=== PATIENT | female | born 1950 | race Caucasian/White ===

== ENCOUNTER 2016-11-24 16:40 | Inpatient (IN) | payer MEDICARE, OTHER ==
[2016-11-24] MEDS ORDERED: SODIUM CHLORIDE 0.9% 500 ML IV STA (16:42)
[2016-11-24] MEDS ORDERED: SODIUM CHLORIDE 0.9% 1,000 ML IV STA ×2 (16:42)
[2016-11-24 17:09] LABS: Anisocytosis Slight; Basophils % (A) 0 %; CH 30.6; CHCM 32.3; Eosinophils # (A) 0.1 k/uL (0-0.7); Eosinophils % (A) 1 %; HCT 25.8 % (34.0-46.0); HDW 3.65; HGB 7.9 gm/dL (11.4-16.0); Hypochromasia Moderate; Luc # (Auto) 0.03; Luc % (Auto) 0; Lymphocytes % (A) 9 %; MCH 29.1 pg (25.0-35.0); MCHC 30.6 g/dL (31.0-37.0); MCV 95.1 fL (80.0-100.0); Mean Platelet Volume 7.2; Monocytes # (A) 0.1 k/uL (0-1.0); Monocytes % (A) 1 %; Neutrophils # (A) 10.3 k/uL (1.3-7.7); Neutrophils % (A) 88 %; Poikilocytosis Slight; RBC 2.71 m/uL (3.80-5.40); RDW 16.2 % (11.5-15.5); WBC 11.7 k/uL (3.8-10.6); WBC (Perox) 12.43
[2016-11-24 17:21] LABS: ALT 32 U/L (9-52); AST 28 U/L (14-36); Alkaline Phosphatase 78 U/L (38-126); Anion Gap 11 mmol/L; Blood Urea Nitrogen 25 mg/dL (7-17); Carbon Dioxide 23 mmol/L (22-30); Chloride 102 mmol/L (98-107); Glucose 199 mg/dL (74-99); Magnesium 1.5 mg/dL (1.6-2.3); Non-African American GFR(MDRD) >60 (>60 ml/min/1.73 sqM); Phosphorous 3.9 mg/dL (2.5-4.5); Potassium 4.9 mmol/L (3.5-5.1); Sodium 136 mmol/L (137-145); Total Bilirubin 0.4 mg/dL (0.2-1.3); Total Protein 6.9 g/dL (6.3-8.2)
[2016-11-24 17:22] LABS: Appearance,Urine Cloudy (Clear); Bilirubin,Urine Negative (Negative); Glucose,Urine (UA) Negative (Negative); Ketones,Urine Negative (Negative); Leukocyte Esterase,Urine Large (Negative); Mucus,Urine Rare /hpf; Nitrite,Urine Negative (Negative); Particle Count 6103; Protein,Urine Trace (Negative); RBC,Urine 44 /hpf (0-5); Specific Gravity,Urine 1.008 (1.001-1.035); Squamous Epithelial Cell,Urine <1 /hpf (0-4); UA Billing (MACRO vs. MICRO) MICRO; Urobilinogen,Urine <2.0 mg/dL (<2.0); WBC,Urine >182 /hpf (0-5)
[2016-11-24 17:29] LABS: INR 1.1 (<1.1); Prothrombin Time 10.7 sec (9.0-12.0)
[2016-11-24 17:32] LABS: Ammonia <9 umol/L (<30)
[2016-11-24 17:45] LABS: Creatine Kinase MB 1.8 ng/mL (0.0-2.4); Troponin I 0.015 ng/mL (0.000-0.034)
--- NOTE | 2016-11-24 18:03 | ED ---
General Adult HPI - General Chief complaint: Altered Mental Status Stated complaint: Altered Mental Status Time Seen by Provider: 11/24/16 16:41 Source: EMS, RN notes reviewed, old records reviewed Mode of arrival: EMS Limitations: altered mental status - History of Present Illness Initial comments: This is a 66-year-old female ER for evaluation. This patient came in for evaluation of altered mental status. Patient's a transfer patient from external Hospital. [facility] transportation for evaluation of possible seizure altered mental status possible urinary tract infection, sepsis with toxic metabolic encephalopathy. Patient cannot give history at this time, history obtained from EMS and the chart - Related Data Home Medications Medication Instructions Recorded Confirmed Aspirin EC [Ecotrin Low Dose] 81 mg PO DAILY 11/24/16 11/24/16 Carvedilol [Coreg] 25 mg PO BID 11/24/16 11/24/16 Fenofibrate,Micronized 134 mg PO DAILY 11/24/16 11/24/16 [Fenofibrate] Furosemide [Lasix] 40 mg PO BID 11/24/16 11/24/16 Insulin Detemir [Levemir] 85 unit SQ HS 11/24/16 11/24/16 Levalbuterol HCl [Xopenex 1.25 mg INHALATION RT-TID 11/24/16 11/24/16 Concentrate] Lisinopril [Zestril] 10 mg PO BID 11/24/16 11/24/16 Potassium Chloride ER [K-Dur 10] 10 meq PO DAILY 11/24/16 11/24/16 Terazosin [Hytrin] 2 mg PO HS 11/24/16 11/24/16 Ticagrelor [Brilinta] 90 mg PO BID 11/24/16 11/24/16 amLODIPine BESYLATE [Norvasc] 2.5 mg PO BID 11/24/16 11/24/16 carBAMazepine [TEGretol] 200 mg PO TID 11/24/16 11/24/16 metFORMIN HCL [Glucophage] 500 mg PO BID 11/24/16 11/24/16 Allergies Allergy/AdvReac Type Severity Reaction Status Date / Time No Known Allergies Allergy Verified 11/24/16 17:10 Review of Systems ROS Statement: Those systems with pertinent positive or pertinent negative responses have been documented in the HPI. ROS Other: All systems not noted in ROS Statement are negative. Past Medical History Past Medical History: Chest Pain / Angina, Diabetes Mellitus, Hypertension History of Any Multi-Drug Resistant Organisms: Unobtainable Past Surgical History: Unable to Obtain Past Psychological History: Unable to Obtain Smoking Status: Unknown if ever smoked Past Alcohol Use History: Unable to Obtain Past Drug Use History: None Reported General Exam Limitations: altered mental status General appearance: in no apparent distress, lethargic Head exam: Present: atraumatic, normocephalic, normal inspection Eye exam: Present: normal appearance, PERRL, EOMI. Absent: scleral icterus, conjunctival injection, periorbital swelling ENT exam: Present: normal exam, mucous membranes moist Neck exam: Present: normal inspection. Absent: tenderness, meningismus, lymphadenopathy Respiratory exam: Present: normal lung sounds bilaterally. Absent: respiratory distress, wheezes, rales, rhonchi, stridor Cardiovascular Exam: Present: regular rate, normal rhythm, normal heart sounds. Absent: systolic murmur, diastolic murmur, rubs, gallop, clicks GI/Abdominal exam: Present: soft, normal bowel sounds. Absent: distended, tenderness, guarding, rebound, rigid Extremities exam: Present: normal inspection, full ROM, normal capillary refill. Absent: tenderness, pedal edema, joint swelling, calf tenderness Back exam: Present: normal inspection Neurological exam: Present: alert, oriented X3, CN II-XII intact Psychiatric exam: Present: normal affect, normal mood Skin exam: Present: warm, dry, intact, normal color. Absent: rash Course Vital Signs 11/24/16 11/24/16 16:43 16:49 Temperature 98.4 F Pulse Rate 99 94 Respiratory 18 17 Rate Blood Pressure 189/88 175/75 O2 Sat by Pulse 96 95 Oximetry - Reevaluation(s) Reevaluation #1: 11/24/16 18:02 Patient is showing no change in medical status EKG Findings - EKG Comments: EKG Findings:: EKG shows normal sinus rhythm rate 99, MI 146, QRS 88 6, QTc 459 Medical Decision Making - Medical Decision Making 66-year-old year for evaluation of altered mental status. Patient appears of toxic metabolic encephalopathy from urinary check infection. Will be admitted for IV fluid IV antibiotics. - Lab Data Result diagrams: 11/24/16 16:46 11/24/16 16:46 Lab Results 01/08/3111/24/16 11/24/16 Range/Units 16:46 16:46 16:46 WBC 11.7 H (3.8-10.6) k/uL RBC 2.71 L (3.80-5.40) m/uL Hgb 7.9 L (11.4-16.0) gm/dL Hct 25.8 L (34.0-46.0) % MCV 95.1 (80.0-100.0) fL MCH 29.1 (25.0-35.0) pg MCHC 30.6 L (31.0-37.0) g/dL RDW 16.2 H (11.5-15.5) % Plt Count 647 H (150-450) k/uL Neutrophils % 88 % Lymphocytes % 9 % Monocytes % 1 % Eosinophils % 1 % Basophils % 0 % Neutrophils # 10.3 H (1.3-7.7) k/uL Lymphocytes # 1.0 (1.0-4.8) k/uL Monocytes # 0.1 (0-1.0) k/uL Eosinophils # 0.1 (0-0.7) k/uL Basophils # 0.0 (0-0.2) k/uL Hypochromasia Moderate Poikilocytosis Slight Anisocytosis Slight PT (9.0-12.0) sec INR (<1.1) APTT (22.0-30.0) sec Sodium (137-145) mmol/L Potassium (3.5-5.1) mmol/L Chloride (98-107) mmol/L Carbon Dioxide (22-30) mmol/L Anion Gap mmol/L BUN (7-17) mg/dL Creatinine (0.52-1.04) mg/dL Est GFR (MDRD) Af Amer (>60 ml/min/1.73 sqM) Est GFR (MDRD) Non-Af (>60 ml/min/1.73 sqM) Glucose (74-99) mg/dL Plasma Lactic Acid Mart 1.5 (0.7-2.0) mmol/L Calcium (8.4-10.2) mg/dL Phosphorus (2.5-4.5) mg/dL Magnesium (1.6-2.3) mg/dL Total Bilirubin (0.2-1.3) mg/dL AST (14-36) U/L ALT (9-52) U/L Alkaline Phosphatase (38-126) U/L Ammonia <9 (<30) umol/L Total Creatine Kinase 49 (30-135) U/L CK-MB (CK-2) 1.8 (0.0-2.4) ng/mL CK-MB (CK-2) Rel Index 3.7 Troponin I 0.015 (0.000-0.034) ng/mL NT-Pro-B Natriuret Pep pg/mL Total Protein (6.3-8.2) g/dL Albumin (3.5-5.0) g/dL Urine Color Urine Appearance (Clear) Urine pH (5.0-8.0) Ur Specific Gratis (1.001-1.035) Urine Protein (Negative) Urine Glucose (UA) (Negative) Urine Ketones (Negative) Urine Blood (Negative) Urine Nitrate (Negative) Urine Bilirubin (Negative) Urine Urobilinogen (<2.0) mg/dL Ur Leukocyte Esterase (Negative) Urine RBC (0-5) /hpf Urine WBC (0-5) /hpf Urine WBC Clumps (None) /hpf Ur Squamous Epith Cells (0-4) /hpf Urine Mucus (None) /hpf 11/24/16 11/24/16 11/24/16 Range/Units 16:46 16:46 16:46 WBC (3.8-10.6) k/uL RBC (3.80-5.40) m/uL Hgb (11.4-16.0) gm/dL Hct (34.0-46.0) % MCV (80.0-100.0) fL MCH (25.0-35.0) pg MCHC (31.0-37.0) g/dL RDW (11.5-15.5) % Plt Count (150-450) k/uL Neutrophils % % Lymphocytes % % Monocytes % % Eosinophils % % Basophils % % Neutrophils # (1.3-7.7) k/uL Lymphocytes # (1.0-4.8) k/uL Monocytes # (0-1.0) k/uL Eosinophils # (0-0.7) k/uL Basophils # (0-0.2) k/uL Hypochromasia Poikilocytosis Anisocytosis PT 10.7 (9.0-12.0) sec INR 1.1 (<1.1) APTT 21.0 L (22.0-30.0) sec Sodium 136 L (137-145) mmol/L Potassium 4.9 (3.5-5.1) mmol/L Chloride 102 (98-107) mmol/L Carbon Dioxide 23 (22-30) mmol/L Anion Gap 11 mmol/L BUN 25 H (7-17) mg/dL Creatinine 0.86 (0.52-1.04) mg/dL Est GFR (MDRD) Af Amer >60 (>60 ml/min/1.73 sqM) Est GFR (MDRD) Non-Af >60 (>60 ml/min/1.73 sqM) Glucose 199 H (74-99) mg/dL Plasma Lactic Acid Mart (0.7-2.0) mmol/L Calcium 9.0 (8.4-10.2) mg/dL Phosphorus 3.9 (2.5-4.5) mg/dL Magnesium 1.5 L (1.6-2.3) mg/dL Total Bilirubin 0.4 (0.2-1.3) mg/dL AST 28 (14-36) U/L ALT 32 (9-52) U/L Alkaline Phosphatase 78 (38-126) U/L Ammonia (<30) umol/L Total Creatine Kinase (30-135) U/L CK-MB (CK-2) (0.0-2.4) ng/mL CK-MB (CK-2) Rel Index Troponin I (0.000-0.034) ng/mL NT-Pro-B Natriuret Pep 6790 pg/mL Total Protein 6.9 (6.3-8.2) g/dL Albumin 3.5 (3.5-5.0) g/dL Urine Color Urine Appearance (Clear) Urine pH (5.0-8.0) Ur Specific Gratis (1.001-1.035) Urine Protein (Negative) Urine Glucose (UA) (Negative) Urine Ketones (Negative) Urine Blood (Negative) Urine Nitrate (Negative) Urine Bilirubin (Negative) Urine Urobilinogen (<2.0) mg/dL Ur Leukocyte Esterase (Negative) Urine RBC (0-5) /hpf Urine WBC (0-5) /hpf Urine WBC Clumps (None) /hpf Ur Squamous Epith Cells (0-4) /hpf Urine Mucus (None) /hpf 11/24/16 Range/Units 16:50 WBC (3.8-10.6) k/uL RBC (3.80-5.40) m/uL Hgb (11.4-16.0) gm/dL Hct (34.0-46.0) % MCV (80.0-100.0) fL MCH (25.0-35.0) pg MCHC (31.0-37.0) g/dL RDW (11.5-15.5) % Plt Count (150-450) k/uL Neutrophils % % Lymphocytes % % Monocytes % % Eosinophils % % Basophils % % Neutrophils # (1.3-7.7) k/uL Lymphocytes # (1.0-4.8) k/uL Monocytes # (0-1.0) k/uL Eosinophils # (0-0.7) k/uL Basophils # (0-0.2) k/uL Hypochromasia Poikilocytosis Anisocytosis PT (9.0-12.0) sec INR (<1.1) APTT (22.0-30.0) sec Sodium (137-145) mmol/L Potassium (3.5-5.1) mmol/L Chloride (98-107) mmol/L Carbon Dioxide (22-30) mmol/L Anion Gap mmol/L BUN (7-17) mg/dL Creatinine (0.52-1.04) mg/dL Est GFR (MDRD) Af Amer (>60 ml/min/1.73 sqM) Est GFR (MDRD) Non-Af (>60 ml/min/1.73 sqM) Glucose (74-99) mg/dL Plasma Lactic Acid Mart (0.7-2.0) mmol/L Calcium (8.4-10.2) mg/dL Phosphorus (2.5-4.5) mg/dL Magnesium (1.6-2.3) mg/dL Total Bilirubin (0.2-1.3) mg/dL AST (14-36) U/L ALT (9-52) U/L Alkaline Phosphatase (38-126) U/L Ammonia (<30) umol/L Total Creatine Kinase (30-135) U/L CK-MB (CK-2) (0.0-2.4) ng/mL CK-MB (CK-2) Rel Index Troponin I (0.000-0.034) ng/mL NT-Pro-B Natriuret Pep pg/mL Total Protein (6.3-8.2) g/dL Albumin (3.5-5.0) g/dL Urine Color Light Yellow Urine Appearance Cloudy H (Clear) Urine pH 5.0 (5.0-8.0) Ur Specific Gratis 1.008 (1.001-1.035) Urine Protein Trace H (Negative) Urine Glucose (UA) Negative (Negative) Urine Ketones Negative (Negative) Urine Blood Moderate H (Negative) Urine Nitrate Negative (Negative) Urine Bilirubin Negative (Negative) Urine Urobilinogen <2.0 (<2.0) mg/dL Ur Leukocyte Esterase Large H (Negative) Urine RBC 44 H (0-5) /hpf Urine WBC >182 H (0-5) /hpf Urine WBC Clumps Many H (None) /hpf Ur Squamous Epith Cells <1 (0-4) /hpf Urine Mucus Rare H (None) /hpf - Radiology Data Radiology results: image reviewed (Chest x-ray from outside facility is reviewed and negative, CT brain is negative) Disposition Clinical Impression: Altered mental status, UTI (urinary tract infection) Disposition: ADMITTED IP TO THIS HOSP Condition: Serious Referrals: None,Stated [Primary Care Provider] - 1-2 days
[2016-11-24] MEDS ORDERED: cefTRIAXone 2,000 MG in SODIUM CHLORIDE 0.9% 100 ML IVPB STA (18:09)
[2016-11-24] MEDS: SODIUM CHLORIDE 0.9% 1,000 ML IV SCH (18:19)
[2016-11-24] MEDS: FAMOTIDINE 20 MG/2 ML VIAL IV SCH (20:09)
[2016-11-24] MEDS: MAGNESIUM SULFATE-D5W PMX 1 GM in DEXTROSE/WATER 1 100ML.BAG IVPB SCH (20:09)
[2016-11-24] MEDS: ASPIRIN 81 MG CHEW PO SCH (22:10)
[2016-11-24] MEDS: FUROSEMIDE 10 MG/ML 4 ML VIAL IV SCH (22:10)
[2016-11-24] MEDS: CARVEDILOL 12.5 MG TAB PO SCH (22:10)
[2016-11-24] MEDS: carBAMazepine 200 MG TAB PO SCH (22:11)
[2016-11-24] MEDS: TERAZOSIN 2 MG CAP PO SCH (22:11)
[2016-11-24] MEDS: TICAGRELOR 90 MG TAB PO SCH (22:11)
[2016-11-24] MEDS: INSULIN DETEMIR 100 UNIT/ML 10 ML VIAL SQ SCH (22:16)
[2016-11-25] MEDS: MAGNESIUM SULFATE-D5W PMX 1 GM in DEXTROSE/WATER 1 100ML.BAG IVPB SCH (01:24)
[2016-11-25] MEDS: CARVEDILOL 12.5 MG TAB PO SCH ×2 (06:44→17:22)
[2016-11-25] MEDS: INSULIN LISPRO (humaLOG) 300 UNIT/3 ML VIAL SQ SCH ×4 (08:00→21:28)
[2016-11-25 08:10] LABS: Glucose,Whole Blood 195 mg/dL (75-99)
[2016-11-25] MEDS: amLODIPine 5 MG TAB PO SCH (08:55)
[2016-11-25] MEDS: FAMOTIDINE 20 MG/2 ML VIAL IV SCH ×2 (08:55→21:13)
[2016-11-25] MEDS: FUROSEMIDE 10 MG/ML 4 ML VIAL IV SCH ×2 (08:55→21:13)
[2016-11-25] MEDS: ASPIRIN 81 MG CHEW PO SCH (08:55)
[2016-11-25 08:56] LABS: Anisocytosis Slight; CH 29.9; CHCM 29.2; HCT 29.4 % (34.0-46.0); HDW 3.47; HGB 8.6 gm/dL (11.4-16.0); Hypochromasia Marked; MCHC 29.2 g/dL (31.0-37.0); Macrocytosis Moderate; Mean Platelet Volume 8.1; Poikilocytosis Slight; RBC 2.87 m/uL (3.80-5.40); WBC 13.9 k/uL (3.8-10.6)
[2016-11-25] MEDS: FENOFIBRATE 160 MG TAB PO SCH (08:56)
[2016-11-25] MEDS: LISINOPRIL 10 MG TAB PO SCH (08:56)
[2016-11-25] MEDS: carBAMazepine 200 MG TAB PO SCH ×3 (08:56→21:14)
[2016-11-25] MEDS: TICAGRELOR 90 MG TAB PO SCH ×2 (08:56→21:14)
[2016-11-25 08:58] LABS: MCV 102.5 fL (80.0-100.0)
[2016-11-25] MEDS ORDERED: POTASSIUM CHLORIDE ER 10 MEQ TAB.ER.PRT PO SCH (09:00)
[2016-11-25 09:16] LABS: Cholesterol 172 mg/dL (<200); HDL Cholesterol 55 mg/dL (40-60); Triglycerides 178 mg/dL (<150)
[2016-11-25] MEDS: LEVALBUTEROL NEB 1.25 MG/3 ML AMP INHALATION SCH ×3 (09:28→20:52)
--- NOTE | 2016-11-25 10:31 | US ---
EXAMINATION TYPE: US carotid duplex BILAT DATE OF EXAM: 11/25/2016 8:40 AM COMPARISON: NONE CLINICAL HISTORY: CVA. EXAM MEASUREMENTS: RIGHT: Peak Systolic Velocity (PSV) cm/sec ----- Right CCA: 85.4 ----- Right ICA: 111.9 ----- Right ECA: 96.8 ICA/CCA ratio: 1.3 RIGHT: End Diastole cm/sec ----- Right CCA: 21.0 ----- Right ICA: 34.9 ----- Right ECA: 0 LEFT: Peak Systolic Velocity (PSV) cm/sec ----- Left CCA: 101.2 ----- Left ICA: 115.8 ----- Left ECA: 153.0 ICA/CCA ratio: 1.1 LEFT: End Diastole cm/sec ----- Left CCA: 18.8 ----- Left ICA: 28.5 ----- Left ECA: 17.0 VERTEBRALS (direction of flow): Right Vertebral: Antegrade Left Vertebral: Antegrade TECHNOLOGIST IMPRESSION: moderate atherosclerotic changes bilateral bulbs. No significant hemodynamic stenosis Note is made of the plaquing within the carotid bulbs. This appears greater at the right internal car otid artery. Doppler waveforms appear within normal limits. Some hard plaque is within the distal lef t common carotid artery IMPRESSION: 1. Atheromatous plaquing without significant flow-limiting stenosis Criteria for Assigning % of Stenosis / Diameter reduction (Estimation based on the indirect measurements of the internal carotid artery velocities (ICA PSV). 1. Normal (no stenosis)=ICA PSV < 125 cm/s: ratio < 2.0: ICA EDV<40 cm/s. 2. Less than 50% stenosis=ICA PSV < 125 cm/s: ratio < 2.0: ICA EDV<40 cm/s. 3. 50 to 69% stenosis=ICA PSV of 125 to 230 cm/s: ration 2.0 ? 4.0: ICA EDV 40-100 cm/s. 4. Greater than 70% stenosis to near occlusion= ICA PSV > 230 cm/s: ratio > 4.0: ICA EDV > 100 cm/s. 5. Near occlusion= ICA PSV velocities may be low or undetectable: variable ratio and ICA EDV. 6. Total occlusion=unable to detect flow.
[2016-11-25 11:05] LABS: Hemoglobin A1C 6.8 % (4.2-6.1)
[2016-11-25] MEDS: ENOXAPARIN 40 MG/0.4 ML SYRINGE SQ SCH (11:36)
[2016-11-25 11:37] LABS: Glucose,Whole Blood 231 mg/dL (75-99)
--- NOTE | 2016-11-25 13:55 | HP ---
DATE OF ADMISSION: CHIEF COMPLAINT: Urinary tract infection and altered mental status. HISTORY OF PRESENT ILLNESS: This is the first known admission for this 66-year-old white female. History is such that she was transferred in from an outside hospital where she may have had a TIA. By the time she got to the emergency room here, she had actually deteriorated. She is now much worse and she cannot appropriately respond to questions or speak. She is paralyzed on the right side. She apparently does have a history of hypertension and diabetes and she recently had some amputations of toes on the right foot. REVIEW OF SYSTEMS: Unobtainable. Past medical history, family history and personal and social histories are all unobtainable. PHYSICAL EXAMINATION: Blood pressure is 145/90 with a pulse of 89, respirations of 15, and she is afebrile. In general, she appeared to be slender. Her color was normal. Head, ears, eyes, nose, mouth, and throat were unremarkable. Neck veins are not distended. There were bilateral carotid bruits or transmitted murmur. The chest is clear to auscultation. The cardiac exam demonstrated a grade 2/6 cardiac murmur. There is no S3 or S4. The abdomen is soft, nontender without visceromegaly or masses. Extremities are normal except for a dressing on the right foot. Neurologically, she is awake, but did not respond appropriately and she could not speak normally. She had a right hemiparesis. IMPRESSION: 1. Left-sided cerebrovascular accident. 2. History of hypertension. 3. History of diabetes. 4. Cardiac murmur. 5. Carotid bruits or transmitted murmur. PLAN: 1. Bed rest. 2. IV fluids. 3. Frequent neurologic status and vital signs. 4. Echocardiogram. 5. Carotid duplex imaging. 6. Oncology consult. 7. Farm Equipment Mechanic consult.
--- NOTE | 2016-11-25 13:57 | PN ---
DATE OF SERVICE: 11/25/2015 CHIEF COMPLAINT: Left-sided CVA. HISTORY OF PRESENT ILLNESS: This lady is unable to speak this morning and has right hemiparesis. PHYSICAL EXAM: Her chest is clear and cardiac exam is unchanged. The abdomen is soft, nontender and extremities are unchanged. IMPRESSION: 1. Left-sided cerebrovascular accident. 2. Cardiac murmur. 3. Carotid bruits. 4. Hypertension. 5. Diabetes. PLAN: Continue work-up.
[2016-11-25 15:14] LABS: Cholesterol 186 mg/dL (<200); HDL Cholesterol 43 mg/dL (40-60); Triglycerides 220 mg/dL (<150)
--- NOTE | 2016-11-25 15:30 | P.CRDCN ---
History of Present Illness Consult date: 11/25/16 Requesting physician: Josh Ramos Reason for Consult (text): CVA Chief complaint: Expressive aphasia History of present illness: This is a 66-year-old female history obtained from the medical record , he was transferred here from [facility]. Apparently around 9 AM asked her to morning, patient states they were sitting at the breakfast table, he was speaking to her at that time, and she was not answering him but kept her eyes open. Initially the thought that she may be hypoglycemic. Around 6 AM when they both awoke patient was reviewed normal self. Upon EMS arrival, they noted that the patient was having right upper extremity weakness with an associated right facial droop. Patient was not speaking at the time of their arrival also. She was brought to [facility], lab data was performed there, WBC 15.3, hemoglobin 8.1, hematocrit 25.4, platelet count 711. Potassium 4.3 BUN 25, creatinine 1.1. Troponin 0.423. RA factor negative. According to the records, patient does have a history of diabetes, hypertension , hyperlipidemia, PAD with a prior vascular stenting procedures, she is on Brilinta at home. We'll attempt to get records from her primary care physician' s office. EKG performed at [place] shows a normal sinus rhythm with nonspecific ST-T wave changes. No evidence of atrial fibrillation on the monitor. Lab data on arrival here, hemoglobin 7.9, 8.6 this morning. White blood cell count 13.9. At the time of my examination, patient continues to have right-sided weakness, and her leg and her arm, significant right-sided facial droop, expressive aphasia. CT scan apparently that was performed at [place] was reported to be normal. Patient arrived here [facility] approximately 4 PM yesterday. Cardiology consultation was requested this afternoon around 3 PM. Carotid study was reviewed reveal any significant obstructive. EKG shows sinus tachycardia. Past Medical History Past Medical History: Atrial Fibrillation, Chest Pain / Angina, COPD, CVA/TIA, Diabetes Mellitus, Deep Vein Thrombosis (DVT), GERD/Reflux, Hyperlipidemia, Hypertension, Liver Disease, Myocardial Infarction (CO) Last Myocardial Infarction Date:: 2015 History of Any Multi-Drug Resistant Organisms: Unobtainable Past Surgical History: Unable to Obtain Past Anesthesia/Blood Transfusion Reactions: No Reported Reaction Past Psychological History: Unable to Obtain Smoking Status: Current every day smoker Past Alcohol Use History: Unable to Obtain Past Drug Use History: None Reported Medications and Allergies Home Medications Medication Instructions Recorded Confirmed Type Aspirin EC [Ecotrin Low Dose] 81 mg PO DAILY 11/24/16 11/24/16 History Carvedilol [Coreg] 25 mg PO BID 11/24/16 11/24/16 History Fenofibrate,Micronized 134 mg PO DAILY 11/24/16 11/24/16 History [Fenofibrate] Furosemide [Lasix] 40 mg PO BID 11/24/16 11/24/16 History Insulin Detemir [Levemir] 85 unit SQ HS 11/24/16 11/24/16 History Levalbuterol HCl [Xopenex 1.25 mg INHALATION RT-TID 11/24/16 11/24/16 History Concentrate] Lisinopril [Zestril] 10 mg PO BID 11/24/16 11/24/16 History Potassium Chloride ER [K-Dur 10] 10 meq PO DAILY 11/24/16 11/24/16 History Terazosin [Hytrin] 2 mg PO HS 11/24/16 11/24/16 History Ticagrelor [Brilinta] 90 mg PO BID 11/24/16 11/24/16 History amLODIPine BESYLATE [Norvasc] 2.5 mg PO BID 11/24/16 11/24/16 History carBAMazepine [TEGretol] 200 mg PO TID 11/24/16 11/24/16 History metFORMIN HCL [Glucophage] 500 mg PO BID 11/24/16 11/24/16 History Allergies Allergy/AdvReac Type Severity Reaction Status Date / Time No Known Allergies Allergy Verified 11/24/16 17:10 Physical Exam Vitals: Vital Signs Temp Pulse Pulse Resp BP BP BP 11/25/16 13:55 88 11/25/16 13:42 88 11/25/16 06:30 92 123/73 11/25/16 04:00 97 F L 95 18 131/66 11/25/16 00:00 97.6 F 109 H 18 135/73 11/24/16 19:18 98.2 F 102 H 18 159/77 11/24/16 19:00 101 H 17 157/79 11/24/16 18:54 98 17 171/88 11/24/16 18:25 94 16 149/67 Pulse Ox 11/25/16 13:55 11/25/16 13:42 11/25/16 06:30 11/25/16 04:00 98 11/25/16 00:00 100 11/24/16 19:18 100 11/24/16 19:00 97 11/24/16 18:54 97 11/24/16 18:25 99 Intake and Output 11/24/16 11/25/16 11/25/16 22:59 06:59 14:59 Intake Total 150 Output Total 1200 2200 Balance -1200 -2200 150 Intake: Oral 150 Output: Urine 1200 2200 Uretheral (Silva) 1700 Other: Voiding Method Indwelling Catheter Weight 77.111 kg PHYSICAL EXAMINATION: HEENT: Head is atraumatic, normocephalic. Pupils equal, round. Neck is supple. There is no elevated jugular venous pressure. HEART EXAMINATION: Heart S1 and S2 systolic murmur is heard. CHEST EXAMINATION: Lungs are clear to auscultation and precussion. No chest wall tenderness is noted on palpation or with deep breathing. ABDOMEN: Soft, nontender. Bowel sounds are heard. No organomegaly noted. EXTREMITIES: 2+ peripheral pulses with no evidence of peripheral edema and no calf tenderness noted. NEUROLOGIC [patient is awake, positive expressive aphasia, positive right sided facial droop, right arm and right leg flaccidity. Results 11/25/16 05:18 11/24/16 16:46 Cardiac Enzymes 11/24/16 11/25/16 Range/Units 22:11 05:18 Troponin I 0.016 0.027 (0.000-0.034) ng/mL CBC 11/25/16 Range/Units 05:18 WBC 13.9 H (3.8-10.6) k/uL RBC 2.87 L (3.80-5.40) m/uL Hgb 8.6 L (11.4-16.0) gm/dL Hct 29.4 L (34.0-46.0) % Plt Count 702 H (150-450) k/uL Current Medications Generic Name Dose Route Start Last Admin Trade Name Freq PRN Reason Stop Dose Admin Amlodipine Besylate 5 mg 11/25/16 09:00 11/25/16 08:55 Norvasc PO 5 mg DAILY ASYA Administration Aspirin 81 mg 11/24/16 20:45 11/25/16 08:55 Aspirin PO 81 mg DAILY ASYA Administration Carbamazepine 200 mg 11/24/16 22:00 11/25/16 08:56 Tegretol PO 200 mg TID ASYA Administration Carvedilol 25 mg 11/24/16 21:30 11/25/16 06:44 Coreg PO 25 mg BID-W/MEALS ASYA Administration Enoxaparin Sodium 40 mg 11/25/16 09:00 11/25/16 11:36 Lovenox SQ Not Given DAILY [facility] Famotidine 20 mg 11/24/16 21:00 11/25/16 08:55 Pepcid IV 20 mg Q12HR ASYA Administration Fenofibrate 160 mg 11/25/16 09:00 11/25/16 08:56 Lofibra PO 160 mg DAILY [facility] Administration Furosemide 40 mg 11/24/16 21:00 11/25/16 08:55 Lasix IV 40 mg Q12HR ASYA Administration Sodium Chloride 1,000 mls @ 50 mls/hr 11/24/16 18:15 11/24/16 18:19 Saline 0.9% IV Not Given .Q20H ASYA Levofloxacin 500 mg/ IV 100 mls @ 100 mls/hr 11/25/16 15:00 Solution IVPB Q24H ASYA Insulin Detemir 85 unit 11/24/16 21:00 11/24/16 22:16 Levemir SQ 25 unit HS ASYA Administration Insulin Human Lispro 0 unit 11/25/16 12:30 11/25/16 11:40 Humalog SQ 3 unit ACHS ASYA Administration Protocol Levalbuterol HCl 1.25 mg 11/25/16 08:00 11/25/16 13:42 Xopenex Nebulized INHALATION 1.25 mg RT-TID ASYA Administration Lisinopril 20 mg 11/25/16 09:00 11/25/16 08:56 Zestril PO 20 mg DAILY [facility] Administration Potassium Chloride 20 meq 11/25/16 21:00 K-Dur 20 PO BID ASYA Terazosin HCl 2 mg 11/24/16 21:00 11/24/16 22:11 Hytrin PO 2 mg HS ASYA Administration Ticagrelor 90 mg 11/24/16 21:00 11/25/16 08:56 Brilinta PO 90 mg BID ASYA Administration Intake and Output 11/24/16 11/25/16 11/25/16 22:59 06:59 14:59 Intake Total 150 Output Total 1200 2200 Balance -1200 -2200 150 Intake: Oral 150 Output: Urine 1200 2200 Uretheral (Silva) 1700 Other: Voiding Method Indwelling Catheter Weight 77.111 kg 11/25/16 05:18 EKG Interpretations (text) EKG shows a sinus tachycardia. Assessment and Plan Plan: Assessment and plan #1 acute CVA, initial symptoms started approximately 9 AM yesterday morning. Persistent a right-sided facial droop, expressive aphasia, and right sided arm and leg flaccidity. Initial CAT scan at [place] negative. Carotid Doppler study no significant stenosis. Neurology has been consulted today. #2 hypertension #3 hyperlipidemia #4 diabetes #5 PAD with prior vascular stenting, exact details not available at this time. Procedure was apparently performed at [place], we will request information on that. She has been taking Brilinta. #6 hypomagnesemia #7 mildly abnormal troponins, not consistent with acute coronary syndrome, could be secondary to acute CVA. 0.015, .017, 0.027. Plan We will obtain an echocardiogram with Doppler study. We will also obtain records of patient's history and prior procedures from [place]. Chest x-ray has been requested. Replace magnesium. Recommendations to follow. DNP note has been reviewed, I agree with a documented findings and plan of care. Patient was seen and examined.
--- NOTE | 2016-11-25 15:56 | XR ---
EXAMINATION TYPE: XR chest 1V portable DATE OF EXAM: 11/25/2016 3:51 PM COMPARISON: NONE INDICATION: Short of breath TECHNIQUE: Single frontal view of the chest is obtained. FINDINGS: The heart size is normal. The pulmonary vasculature is normal. The lungs are clear. IMPRESSION: 1. No acute pulmonary process.
[2016-11-25] MEDS: LEVOFLOXACIN 500MG-D5W PMX 500 MG in DEXTROSE/WATER 1 100ML.BAG IVPB SCH (16:11)
[2016-11-25] MEDS: SODIUM CHLORIDE 0.9% 1,000 ML IV SCH (16:14)
[2016-11-25 16:53] LABS: Glucose,Whole Blood 287 mg/dL (75-99)
--- NOTE | 2016-11-25 18:54 | P.CNNES ---
History of Present Illness Consult date: 11/25/16 History of Present Illness: The patient is a 66-year-old woman who woke up yesterday in her usual state of health was having breakfast around 9 AM when suddenly she had difficulty getting her words out. She also had a facial droop. EMS was called and she was taken to [facility] where she was admitted. Symptoms apparently resolved completely and then recurred. She was transferred from [facility] to [facility] yesterday. Neurology was consulted today for evaluation of mental status changes. The patient is unable to give history. She has difficulty verbalizing. Her daughter is at her bedside. Her daughter states she's never had such complaints before. She has been having difficulty speaking since yesterday. The patient had recent surgery for gangrene the patient has multiple medical problems including coronary artery disease peripheral vascular disease and insulin-dependent diabetes hypertension and seizure disorder. The patient is on Brilinta, asa and Lovenox Review of Systems ROS unobtainable: due to mental status Past Medical History Past Medical History: Atrial Fibrillation, Chest Pain / Angina, COPD, CVA/TIA, Diabetes Mellitus, Deep Vein Thrombosis (DVT), GERD/Reflux, Hyperlipidemia, Hypertension, Liver Disease, Myocardial Infarction ([place]) Last Myocardial Infarction Date:: 2015 History of Any Multi-Drug Resistant Organisms: Unobtainable Past Surgical History: Unable to Obtain Past Anesthesia/Blood Transfusion Reactions: No Reported Reaction Past Psychological History: Unable to Obtain Smoking Status: Current every day smoker Past Alcohol Use History: Unable to Obtain Past Drug Use History: None Reported Medications and Allergies Home Medications Medication Instructions Recorded Confirmed Type Aspirin EC [Ecotrin Low Dose] 81 mg PO DAILY 11/24/16 11/24/16 History Carvedilol [Coreg] 25 mg PO BID 11/24/16 11/24/16 History Fenofibrate,Micronized 134 mg PO DAILY 11/24/16 11/24/16 History [Fenofibrate] Furosemide [Lasix] 40 mg PO BID 11/24/16 11/24/16 History Insulin Detemir [Levemir] 85 unit SQ HS 11/24/16 11/24/16 History Levalbuterol HCl [Xopenex 1.25 mg INHALATION RT-TID 11/24/16 11/24/16 History Concentrate] Lisinopril [Zestril] 10 mg PO BID 11/24/16 11/24/16 History Potassium Chloride ER [K-Dur 10] 10 meq PO DAILY 11/24/16 11/24/16 History Terazosin [Hytrin] 2 mg PO HS 11/24/16 11/24/16 History Ticagrelor [Brilinta] 90 mg PO BID 11/24/16 11/24/16 History amLODIPine BESYLATE [Norvasc] 2.5 mg PO BID 11/24/16 11/24/16 History carBAMazepine [TEGretol] 200 mg PO TID 11/24/16 11/24/16 History metFORMIN HCL [Glucophage] 500 mg PO BID 11/24/16 11/24/16 History Allergies Allergy/AdvReac Type Severity Reaction Status Date / Time No Known Allergies Allergy Verified 11/24/16 17:10 Physical Examination - Vital Signs Vital Signs: Vital Signs Temp Pulse Pulse Resp BP BP BP 11/25/16 15:48 98.0 F 84 16 115/62 11/25/16 13:55 88 11/25/16 13:42 88 11/25/16 12:00 85 16 11/25/16 08:00 98.3 F 82 16 109/56 11/25/16 06:30 92 123/73 11/25/16 04:00 97 F L 95 18 131/66 11/25/16 00:00 97.6 F 109 H 18 135/73 11/24/16 19:18 98.2 F 102 H 18 159/77 11/24/16 19:00 101 H 17 157/79 11/24/16 18:54 98 17 171/88 Pulse Ox 11/25/16 15:48 94 L 11/25/16 13:55 11/25/16 13:42 11/25/16 12:00 94 L 11/25/16 08:00 94 L 11/25/16 06:30 11/25/16 04:00 98 11/25/16 00:00 100 11/24/16 19:18 100 11/24/16 19:00 97 11/24/16 18:54 97 Intake and Output 11/25/16 11/25/16 11/25/16 06:59 14:59 22:59 Intake Total 930 100 Output Total 2200 Balance -2200 930 100 Intake: IV 300 Sodium Chloride 0.9% 1, 300 000 ml @ 50 mls/hr IV . Q[facility]H [facility] Rx#:[id number] Oral 630 100 Output: Urine 2200 Uretheral (Silva) 1700 Other: Voiding Method Indwelling Catheter Indwelling Catheter Indwelling Catheter - Constitutional General appearance: average body habitus - EENT EENT: PERRL, vision intact - Respiratory Respiratory: lungs clear - Cardiovascular Cardiovascular: regular rate - Integumentary Integumentary: normal - Neurologic Mental status she was awake she had expressive aphasia Cranial nerve examination: EOMI, tongue midline, facial droop Motor examination - right side: 2/5: biceps, triceps, wrist flexion, wrist extension Motor examination - left side: 5/5: biceps, triceps, wrist flexion, wrist extension - Psychiatric Psychiatric: cooperative Results - Laboratory Findings CBC and BMP: 11/25/16 05:18 11/24/16 16:46 Abnormal Lab Findings: Abnormal Labs 11/25/16 11/25/16 11/25/16 05:18 05:18 05:18 WBC 13.9 H RBC 2.87 L Hgb 8.6 L Hct 29.4 L MCV 102.5 H D MCHC 29.2 L RDW 16.0 H Plt Count 702 H POC Glucose (mg/dL) Hemoglobin A1c 6.8 H Triglycerides 220 H 11/25/16 11/25/16 11/25/16 07:58 11:33 16:51 WBC RBC Hgb Hct MCV MCHC RDW Plt Count POC Glucose (mg/dL) 195 H 231 H 287 H Hemoglobin A1c Triglycerides Assessment and Plan (1) Stroke determined by clinical assessment Status: Acute Code(s): I63.9 - CEREBRAL INFARCTION, UNSPECIFIED (2) Altered mental status Status: Acute Code(s): R41.82 - ALTERED MENTAL STATUS, UNSPECIFIED (3) History of coronary artery disease Status: Chronic Code(s): Z86.79 - PERSONAL HISTORY OF OTHER DISEASES OF THE CIRCULATORY SYSTEM (4) Peripheral vascular disease due to secondary diabetes Narrative/Plan: The patient has clinical signs of a left subcortical infarct. She had a carotid ultrasound which did not show any significant stenosis. She had an echocardiogram which is pending. Recommend speech to evaluate and physical therapy. We'll do follow-up computed tomography scan of the brain. Continue current antiplatelet regimen Status: Acute Plan: The patient has clinical evidence of a left subcortical infarct. Recommend follow-up computed tomography scan of the brain. Continue current antiplatelet regimen. Recommend physical therapy and speech therapy.
--- NOTE | 2016-11-25 19:25 | CT ---
EXAMINATION TYPE: CT brain wo con DATE OF EXAM: 11/25/2016 7:06 PM COMPARISON: CT brain 24 November 2016 HISTORY: follow up CVA CT DLP: 1278 mGycm Automated exposure control for dose reduction was used. FINDINGS: There is no acute intracranial hemorrhage, mass effect, or midline shift identified. White matter de myelination is again noted. The basal ganglia on the left show increased conspicuity of low attenuati on which may represent subacute infarct. The ventricles and sulci are within normal limits in size. The globes are intact and the visualized sinuses are clear. IMPRESSION: Suspect subacute infarct basal ganglia on the left, there is evidence of chronic small vessel ischemi a. Correlate clinically, MRI may be of benefit.
[2016-11-25] MEDS: TERAZOSIN 2 MG CAP PO SCH (21:13)
[2016-11-25] MEDS: POTASSIUM CHLORIDE ER 20 MEQ TAB.ER PO SCH (21:14)
[2016-11-25] MEDS: INSULIN DETEMIR 100 UNIT/ML 10 ML VIAL SQ SCH (21:28)
[2016-11-25 21:29] LABS: Glucose,Whole Blood 401 mg/dL (75-99)
[2016-11-26 05:49] LABS: Anisocytosis Slight; Basophils % (A) 0 %; CH 29.9; CHCM 31.6; Eosinophils # (A) 0.1 k/uL (0-0.7); Eosinophils % (A) 1 %; HCT 25.2 % (34.0-46.0); HDW 3.76; HGB 7.7 gm/dL (11.4-16.0); Hypochromasia Moderate; Luc # (Auto) 0.13; Luc % (Auto) 1; Lymphocytes # (A) 1.7 k/uL (1.0-4.8); Lymphocytes % (A) 17 %; MCH 29.2 pg (25.0-35.0); MCHC 30.8 g/dL (31.0-37.0); Mean Platelet Volume 6.2; Monocytes # (A) 0.6 k/uL (0-1.0); Monocytes % (A) 6 %; Neutrophils # (A) 7.6 k/uL (1.3-7.7); Neutrophils % (A) 75 %; Poikilocytosis Slight; RBC 2.65 m/uL (3.80-5.40); WBC 10.2 k/uL (3.8-10.6); WBC (Perox) 10.46
[2016-11-26 05:59] LABS: MCV 94.8 fL (80.0-100.0)
[2016-11-26 06:16] LABS: Glucose,Whole Blood 39 mg/dL (75-99)
[2016-11-26] MEDS ORDERED: DEXTROSE 50%-WATER 50 ML SYRINGE IVP ONE ×2 (06:17→10:06)
[2016-11-26 06:23] LABS: AST 24 U/L (14-36); Alkaline Phosphatase 68 U/L (38-126); Anion Gap 12 mmol/L; Blood Urea Nitrogen 22 mg/dL (7-17); Calcium 8.9 mg/dL (8.4-10.2); Carbon Dioxide 27 mmol/L (22-30); Chloride 101 mmol/L (98-107); Glucose 62 mg/dL (74-99); Non-African American GFR(MDRD) >60 (>60 ml/min/1.73 sqM); Potassium 3.7 mmol/L (3.5-5.1); Sodium 140 mmol/L (137-145); Total Bilirubin 0.4 mg/dL (0.2-1.3); Total Protein 6.6 g/dL (6.3-8.2)
[2016-11-26 06:28] LABS: ALT 33 U/L (9-52)
[2016-11-26] MEDS: INSULIN LISPRO (humaLOG) 300 UNIT/3 ML VIAL SQ SCH ×4 (06:33→22:00)
[2016-11-26] MEDS: CARVEDILOL 12.5 MG TAB PO SCH ×3 (06:35→17:56)
[2016-11-26 06:41] LABS: Glucose,Whole Blood 146 mg/dL (75-99)
[2016-11-26] MEDS: LEVALBUTEROL NEB 1.25 MG/3 ML AMP INHALATION SCH ×3 (07:29→18:52)
[2016-11-26 10:15] LABS: Glucose,Whole Blood 38 mg/dL (75-99)
[2016-11-26 10:32] LABS: Glucose,Whole Blood 108 mg/dL (75-99)
--- NOTE | 2016-11-26 10:53 | ECHOF ---
Referral Reason:lvfxn MEASUREMENTS -------- HEIGHT: 167.6 cm WEIGHT: 77.1 kg BP: 122/73 IVSd: 1.3 cm (0.6 - 1.1) LVIDd: 4.0 cm (3.9 - 5.3) LVPWd: 1.3 cm (0.6 - 1.1) IVSs: 1.8 cm LVIDs: 3.0 cm LVPWs: 1.8 cm LA Diam: 4.0 cm (2.7 - 3.8) Ao Diam: 3.1 cm (2.0 - 3.7) AV Cusp: 1.6 cm (1.5 - 2.6) LA Diam: 3.7 cm (2.7 - 3.8) MV EXCURSION: 11.106 mm (> 18.000) MV EF SLOPE: 43 mm/s (70 - 150) EPSS: 0.3 cm MV E Michael: 1.53 m/s MV DecT: 194 ms MV A Michael: 1.42 m/s MV E/A Ratio: 1.08 AV maxP.88 mmHg AV meanP.88 mmHg RAP: 5.00 mmHg RVSP: 29.17 mmHg FINDINGS -------- Sinus rhythm. This was a technically good study. There is mild concentric left ventricular hypertrophy. Overall left ventricular systolic function is normal with, an EF between 55 - 60 %. Prox septum appears more hypertrophied. The right ventricle is normal in size. The left atrium is mildly dilated. The right atrium is normal in size. Aortic valve is trileaflet and is mildly thickened. There is mild aortic valve sclerosis. Peak/mean gradient across the Aortic Valve is 18.88mmHg / 11.88mmHg. The mitral valve leaflets are mildly thickened. Moderate mitral annular calcification present. There is trace to mild mitral regurgitation. Mild tricuspid regurgitation present. Right ventricular systolic pressure is normal at < 35 mmHg. The pulmonic valve was not well visualized. The aortic root size is normal. Normal inferior vena cava with normal inspiratory collapse consistent with estimated right atrial pressure of 5 mmHg. There is no pericardial effusion. CONCLUSIONS -------- 1. Sinus rhythm. 2. Peak/mean gradient across the Aortic Valve is 18.88mmHg / 11.88mmHg. 3. The mitral valve leaflets are mildly thickened. 4. Moderate mitral annular calcification present. 5. There is trace to mild mitral regurgitation. 6. Mild tricuspid regurgitation present. 7. Right ventricular systolic pressure is normal at < 35 mmHg. 8. The pulmonic valve was not well visualized. 9. The aortic root size is normal. 10. There is no pericardial effusion. 11. This was a technically good study. 12. There is mild concentric left ventricular hypertrophy. 13. Overall left ventricular systolic function is normal with, an EF between 55 - 60 %. 14. The right ventricle is normal in size. 15. The left atrium is mildly dilated. 16. The right atrium is normal in size. 17. Aortic valve is trileaflet and is mildly thickened. 18. There is mild aortic valve sclerosis. DIGITAL COORDINATOR: Ubaldo Liu RDCS
[2016-11-26] MEDS: amLODIPine 5 MG TAB PO SCH (11:15)
[2016-11-26] MEDS: carBAMazepine 200 MG TAB PO SCH ×3 (11:16→22:08)
[2016-11-26] MEDS: ENOXAPARIN 40 MG/0.4 ML SYRINGE SQ SCH (11:16)
[2016-11-26] MEDS: ASPIRIN 81 MG CHEW PO SCH (11:16)
[2016-11-26] MEDS: FENOFIBRATE 160 MG TAB PO SCH (11:17)
[2016-11-26] MEDS: FUROSEMIDE 10 MG/ML 4 ML VIAL IV SCH ×2 (11:17→22:01)
[2016-11-26] MEDS: FAMOTIDINE 20 MG/2 ML VIAL IV SCH (11:17)
[2016-11-26] MEDS: LISINOPRIL 10 MG TAB PO SCH (11:17)
[2016-11-26] MEDS: POTASSIUM CHLORIDE ER 20 MEQ TAB.ER PO SCH ×2 (11:18→21:30)
[2016-11-26] MEDS: TICAGRELOR 90 MG TAB PO SCH ×2 (11:19→22:01)
[2016-11-26] MEDS: SODIUM CHLORIDE 0.9% 1,000 ML IV SCH (11:19)
[2016-11-26 11:54] LABS: Glucose,Whole Blood 125 mg/dL (75-99)
--- NOTE | 2016-11-26 14:38 | P.PN ---
Subjective Principal diagnosis: CVA This is a 66-year-old female who was admitted to the hospital with an acute CVA. Cardiology was initially asked to see the patient because of abnormal troponins. Patient's troponin was not consistent with acute coronary syndrome. An echocardiogram with Doppler study was performed which revealed normal left ventricular systolic function. Repeat CAT scan of the brain revealed subacute infarct in the basal ganglia on the left. Patient was seen and examined today, essentially unchanged from yesterday. Blood pressure 134/56 , heart rate in the 80s, respirations 18. Temperature earlier this morning 100.3, 98.9 this morning. Objective - Vital Signs Vital signs: Vital Signs Temp 98.9 F 11/26/16 12:00 Pulse 84 11/26/16 13:14 Resp 18 11/26/16 12:00 BP 134/55 11/26/16 12:00 Pulse Ox 98 11/26/16 12:00 Intake & Output 11/25/16 11/26/16 11/26/16 18:59 06:59 18:59 Intake Total 1030 100 Output Total 3400 300 Balance 1030 -3400 -200 Weight 62.1 kg Intake: IV 300 Sodium Chloride 0.9% 1, 300 000 ml @ 50 mls/hr IV . Q20H [facility] Rx#:[id number] Oral 730 100 Output: Urine 3400 300 Other: Voiding Method Indwelling Catheter Indwelling Catheter Indwelling Catheter - Exam PHYSICAL EXAMINATION: HEENT: Head is atraumatic, normocephalic. Pupils equal, round. Neck is supple. There is no elevated jugular venous pressure. HEART EXAMINATION: Heart S1 and S2 systolic murmur is heard. CHEST EXAMINATION: Lungs are clear to auscultation and precussion. No chest wall tenderness is noted on palpation or with deep breathing. ABDOMEN: Soft, nontender. Bowel sounds are heard. No organomegaly noted. EXTREMITIES: 2+ peripheral pulses with no evidence of peripheral edema and no calf tenderness noted. NEUROLOGIC [patient is awake, positive expressive aphasia, positive right sided facial droop, right arm and right leg flaccidity. - Labs CBC & Chem 7: 11/26/16 05:27 11/26/16 05:27 Labs: Abnormal Lab Results - Last 24 Hours (Table) 11/25/16 11/25/16 11/25/16 Range/Units 05:18 16:51 21:27 RBC (3.80-5.40) m/uL Hgb (11.4-16.0) gm/dL Hct (34.0-46.0) % MCHC (31.0-37.0) g/dL RDW (11.5-15.5) % Plt Count (150-450) k/uL BUN (7-17) mg/dL Glucose (74-99) mg/dL POC Glucose (mg/dL) 287 H 401 H (75-99) mg/dL Albumin (3.5-5.0) g/dL Triglycerides 220 H (<150) mg/dL 11/26/16 11/26/16 11/26/16 Range/Units 05:27 05:27 06:14 RBC 2.65 L (3.80-5.40) m/uL Hgb 7.7 L (11.4-16.0) gm/dL Hct 25.2 L (34.0-46.0) % MCHC 30.8 L (31.0-37.0) g/dL RDW 16.0 H (11.5-15.5) % Plt Count 631 H (150-450) k/uL BUN 22 H (7-17) mg/dL Glucose 62 L (74-99) mg/dL POC Glucose (mg/dL) 39 L (75-99) mg/dL Albumin 3.2 L (3.5-5.0) g/dL Triglycerides (<150) mg/dL 11/26/16 11/26/16 11/26/16 Range/Units 06:40 10:04 10:27 RBC (3.80-5.40) m/uL Hgb (11.4-16.0) gm/dL Hct (34.0-46.0) % MCHC (31.0-37.0) g/dL RDW (11.5-15.5) % Plt Count (150-450) k/uL BUN (7-17) mg/dL Glucose (74-99) mg/dL POC Glucose (mg/dL) 146 H 38 L 108 H (75-99) mg/dL Albumin (3.5-5.0) g/dL Triglycerides (<150) mg/dL 11/26/16 Range/Units 11:11 RBC (3.80-5.40) m/uL Hgb (11.4-16.0) gm/dL Hct (34.0-46.0) % MCHC (31.0-37.0) g/dL RDW (11.5-15.5) % Plt Count (150-450) k/uL BUN (7-17) mg/dL Glucose (74-99) mg/dL POC Glucose (mg/dL) 125 H (75-99) mg/dL Albumin (3.5-5.0) g/dL Triglycerides (<150) mg/dL Assessment and Plan Plan: Assessment and plan #1 acute CVA, initial symptoms started approximately 9 AM yesterday morning. Persistent a right-sided facial droop, expressive aphasia, and right sided arm and leg flaccidity. Initial CAT scan at [place] negative. CAT scan performed here revealed subacute infarct in the basal ganglia on the left. Carotid Doppler study no significant stenosis. . #2 hypertension #3 hyperlipidemia #4 diabetes #5 PAD with prior vascular stenting, exact details not available at this time. Procedure was apparently performed at [place], we will request information on that. She has been taking Brilinta. #6 hypomagnesemia #7 mildly abnormal troponins, not consistent with acute coronary syndrome, could be secondary to acute CVA. 0.015, .017, 0.027. Plan From cardiology's perspective, we'll continue current medications. We will see how the patient progresses overall, she may require a JAMAAL at some point. DNP note has been reviewed, I agree with a documented findings and plan of care. Patient was seen and examined.
[2016-11-26] MEDS ORDERED: INSULIN DETEMIR 100 UNIT/ML 10 ML VIAL SQ SCH (14:40)
[2016-11-26] MEDS: LEVOFLOXACIN 500MG-D5W PMX 500 MG in DEXTROSE/WATER 1 100ML.BAG IVPB SCH (16:16)
[2016-11-26 17:01] LABS: Glucose,Whole Blood 289 mg/dL (75-99)
--- NOTE | 2016-11-26 18:36 | PN ---
DATE OF SERVICE: 11/26/2016 CHIEF COMPLAINT: CVA. HISTORY OF PRESENT ILLNESS: This lady is the same. She is awake and alert, but aphasic and hemiparetic. Troponin was elevated, and this is being evaluated. Review of systems is unobtainable. PHYSICAL EXAM: Her chest is clear. Cardiac exam is unremarkable and there are no carotid bruits. The abdomen is soft, nontender. Extremities demonstrated right-sided hemiparesis. IMPRESSION: 1. Left-sided cerebrovascular accident with right hemiparesis and expressive aphasia. 2. Elevated troponin. PLAN: 1. Continue neurologic workup and evaluation. 2. ( ) 3. Evaluate for elevated troponin.
[2016-11-26 20:42] LABS: Glucose,Whole Blood 424 mg/dL (75-99)
--- NOTE | 2016-11-26 21:09 | P.PN ---
Subjective The patient is a 66-year-old woman with history of "coronary artery disease hypertension diabetes and hyperlipidemia who presents sits to [facility] with right hemiparesis and aphasia. CT of the brain performed yesterday evening showed left basal ganglia infarct. She has had a carotid ultrasound and echocardiogram which were unremarkable. The patient is awake alert sitting in bed unable to follow commands completely does follow a few commands. She has an expressive aphasia and some receptive aphasia as well. He seems to be clinically stable and unchanged from yesterday. Objective - Vital Signs Vital signs: Vital Signs Temp 98.9 F 11/26/16 16:00 Pulse 99 11/26/16 19:01 Resp 18 11/26/16 16:00 BP 121/58 11/26/16 16:00 Pulse Ox 98 11/26/16 16:00 Intake & Output 11/26/16 11/26/16 11/27/16 06:59 18:59 06:59 Intake Total 300 Output Total 3400 1050 Balance -3400 -750 Weight 62.1 kg Intake: Oral 300 Output: Urine 3400 1050 Other: Voiding Method Indwelling Catheter Indwelling Catheter - Constitutional General appearance: Present: average body habitus - EENT Eyes: Present: PERRLA ENT: Present: hearing grossly normal - Respiratory Respiratory: bilateral: CTA - Cardiovascular Rhythm: regular - Neurologic Neurologic Comment(s): Status she is awake she is alert she has an expressive aphasia Neurologic: Present: focal deficits (Patient does have mild right facial droop) - Musculoskeletal Musculoskeletal: Present: right sided weakness - Labs CBC & Chem 7: 11/26/16 05:27 11/26/16 05:27 Labs: Abnormal Lab Results - Last 24 Hours (Table) 11/25/16 11/26/16 11/26/16 Range/Units 21:27 05:27 05:27 RBC 2.65 L (3.80-5.40) m/uL Hgb 7.7 L (11.4-16.0) gm/dL Hct 25.2 L (34.0-46.0) % MCHC 30.8 L (31.0-37.0) g/dL RDW 16.0 H (11.5-15.5) % Plt Count 631 H (150-450) k/uL BUN 22 H (7-17) mg/dL Glucose 62 L (74-99) mg/dL POC Glucose (mg/dL) 401 H (75-99) mg/dL Albumin 3.2 L (3.5-5.0) g/dL 11/26/16 11/26/16 11/26/16 Range/Units 06:14 06:40 10:04 RBC (3.80-5.40) m/uL Hgb (11.4-16.0) gm/dL Hct (34.0-46.0) % MCHC (31.0-37.0) g/dL RDW (11.5-15.5) % Plt Count (150-450) k/uL BUN (7-17) mg/dL Glucose (74-99) mg/dL POC Glucose (mg/dL) 39 L 146 H 38 L (75-99) mg/dL Albumin (3.5-5.0) g/dL 11/26/16 11/26/16 11/26/16 Range/Units 10:27 11:11 16:58 RBC (3.80-5.40) m/uL Hgb (11.4-16.0) gm/dL Hct (34.0-46.0) % MCHC (31.0-37.0) g/dL RDW (11.5-15.5) % Plt Count (150-450) k/uL BUN (7-17) mg/dL Glucose (74-99) mg/dL POC Glucose (mg/dL) 108 H 125 H 289 H (75-99) mg/dL Albumin (3.5-5.0) g/dL 11/26/16 Range/Units 20:40 RBC (3.80-5.40) m/uL Hgb (11.4-16.0) gm/dL Hct (34.0-46.0) % MCHC (31.0-37.0) g/dL RDW (11.5-15.5) % Plt Count (150-450) k/uL BUN (7-17) mg/dL Glucose (74-99) mg/dL POC Glucose (mg/dL) 424 H (75-99) mg/dL Albumin (3.5-5.0) g/dL Assessment and Plan (1) Stroke determined by clinical assessment Status: Acute Code(s): I63.9 - CEREBRAL INFARCTION, UNSPECIFIED (2) Altered mental status Status: Acute Code(s): R41.82 - ALTERED MENTAL STATUS, UNSPECIFIED (3) History of coronary artery disease Status: Chronic Code(s): Z86.79 - PERSONAL HISTORY OF OTHER DISEASES OF THE CIRCULATORY SYSTEM (4) Peripheral vascular disease due to secondary diabetes Status: Acute Plan: Patient is a 66-year-old woman who has had a left subcortical infarct and is neurologically stable. Her CT of the brain done yesterday evening reveals a left basal ganglia infarct without hemorrhage or mass effect. Her risk factors for stroke include coronary artery disease hypertension hyperlipidemia diabetes. She is awake and alert and has a significant expressive aphasia. He does have elevated troponins. Continue current antiplatelet regimen and speech therapy and physical therapy
[2016-11-26] MEDS: FAMOTIDINE 20 MG TAB PO SCH (21:59)
[2016-11-26] MEDS: TERAZOSIN 2 MG CAP PO SCH (22:01)
[2016-11-26] MEDS: DEXTROSE 5%-0.2% NACL 1,000 ML IV SCH (22:07)
[2016-11-27 06:33] LABS: Glucose,Whole Blood 117 mg/dL (75-99)
[2016-11-27 06:53] LABS: Anisocytosis Slight; Basophils % (A) 0 %; CHCM 31.6; Eosinophils # (A) 0.1 k/uL (0-0.7); Eosinophils % (A) 1 %; HCT 23.2 % (34.0-46.0); HDW 3.56; HGB 7.2 gm/dL (11.4-16.0); Hypochromasia Moderate; Luc # (Auto) 0.13; Luc % (Auto) 1; Lymphocytes # (A) 1.6 k/uL (1.0-4.8); Lymphocytes % (A) 17 %; MCH 29.4 pg (25.0-35.0); MCV 94.9 fL (80.0-100.0); Mean Platelet Volume 7.3; Monocytes # (A) 0.7 k/uL (0-1.0); Monocytes % (A) 7 %; Neutrophils % (A) 73 %; Poikilocytosis Slight; RBC 2.45 m/uL (3.80-5.40); RDW 16.2 % (11.5-15.5); WBC 9.5 k/uL (3.8-10.6); WBC (Perox) 9.94
[2016-11-27] MEDS: CARVEDILOL 12.5 MG TAB PO SCH ×2 (07:04→17:58)
[2016-11-27 07:06] LABS: ALT 29 U/L (9-52); AST 18 U/L (14-36); Alkaline Phosphatase 63 U/L (38-126); Anion Gap 10 mmol/L; Blood Urea Nitrogen 27 mg/dL (7-17); Calcium 8.9 mg/dL (8.4-10.2); Carbon Dioxide 28 mmol/L (22-30); Chloride 103 mmol/L (98-107); Glucose 176 mg/dL (74-99); Non-African American GFR(MDRD) 50 (>60 ml/min/1.73 sqM); Potassium 3.8 mmol/L (3.5-5.1); Sodium 141 mmol/L (137-145); Total Bilirubin 0.3 mg/dL (0.2-1.3); Total Protein 6.5 g/dL (6.3-8.2)
[2016-11-27] MEDS: INSULIN LISPRO (humaLOG) 300 UNIT/3 ML VIAL SQ SCH ×4 (07:58→21:31)
[2016-11-27] MEDS: LEVALBUTEROL NEB 1.25 MG/3 ML AMP INHALATION SCH ×3 (09:09→19:59)
[2016-11-27] MEDS: amLODIPine 5 MG TAB PO SCH (10:09)
[2016-11-27] MEDS: ENOXAPARIN 40 MG/0.4 ML SYRINGE SQ SCH (10:09)
[2016-11-27] MEDS: ASPIRIN 81 MG CHEW PO SCH (10:10)
[2016-11-27] MEDS: FUROSEMIDE 10 MG/ML 4 ML VIAL IV SCH ×2 (10:10→21:30)
[2016-11-27] MEDS: FAMOTIDINE 20 MG TAB PO SCH (10:10)
[2016-11-27] MEDS: FENOFIBRATE 160 MG TAB PO SCH (10:10)
[2016-11-27] MEDS: carBAMazepine 200 MG TAB PO SCH ×3 (10:10→21:30)
[2016-11-27] MEDS: POTASSIUM CHLORIDE ER 20 MEQ TAB.ER PO SCH ×2 (10:11→21:30)
[2016-11-27] MEDS: LISINOPRIL 10 MG TAB PO SCH (10:11)
[2016-11-27] MEDS: TICAGRELOR 90 MG TAB PO SCH ×2 (10:12→21:30)
--- NOTE | 2016-11-27 10:39 | P.GSCN ---
History of Present Illness Consult date: 11/27/16 Reason for Consult: Open wound right foot Requesting physician: Josh Ramos History of present illness: This 66-year-old woman was transferred here from another institution. She had an altered state of consciousness and was being diagnosed with a UTI. She has a history of diabetes and hypertension. She recently had a transmetatarsal amputation of the right foot. The wound is open. Review of Systems ROS unobtainable: due to mental status Past Medical History Past Medical History: Atrial Fibrillation, Chest Pain / Angina, COPD, CVA/TIA, Diabetes Mellitus, Deep Vein Thrombosis (DVT), GERD/Reflux, Hyperlipidemia, Hypertension, Liver Disease, Myocardial Infarction ([place]) Last Myocardial Infarction Date:: 2015 History of Any Multi-Drug Resistant Organisms: None Reported Past Surgical History: Unable to Obtain Past Anesthesia/Blood Transfusion Reactions: No Reported Reaction Past Psychological History: Unable to Obtain Smoking Status: Current every day smoker Past Alcohol Use History: Unable to Obtain Past Drug Use History: None Reported Medications and Allergies Home Medications Medication Instructions Recorded Confirmed Type Aspirin EC [Ecotrin Low Dose] 81 mg PO DAILY 11/24/16 11/24/16 History Carvedilol [Coreg] 25 mg PO BID 11/24/16 11/24/16 History Fenofibrate,Micronized 134 mg PO DAILY 11/24/16 11/24/16 History [Fenofibrate] Furosemide [Lasix] 40 mg PO BID 11/24/16 11/24/16 History Insulin Detemir [Levemir] 85 unit SQ HS 11/24/16 11/24/16 History Levalbuterol HCl [Xopenex 1.25 mg INHALATION RT-TID 11/24/16 11/24/16 History Concentrate] Lisinopril [Zestril] 10 mg PO BID 11/24/16 11/24/16 History Potassium Chloride ER [K-Dur 10] 10 meq PO DAILY 11/24/16 11/24/16 History Terazosin [Hytrin] 2 mg PO HS 11/24/16 11/24/16 History Ticagrelor [Brilinta] 90 mg PO BID 11/24/16 11/24/16 History amLODIPine BESYLATE [Norvasc] 2.5 mg PO BID 11/24/16 11/24/16 History carBAMazepine [TEGretol] 200 mg PO TID 11/24/16 11/24/16 History metFORMIN HCL [Glucophage] 500 mg PO BID 11/24/16 11/24/16 History Allergies Allergy/AdvReac Type Severity Reaction Status Date / Time No Known Allergies Allergy Verified 11/24/16 17:10 Surgical - Exam Osteopathic Statement: *. No significant issues noted on an osteopathic structural exam other than those noted in the History and Physical/Consult. Vital Signs Temp Pulse Resp BP Pulse Ox 98.4 F 99 18 189/88 96 11/24/16 16:43 11/24/16 16:43 11/24/16 16:43 11/24/16 16:43 11/24/16 16:43 - General well developed, well nourished, no distress - Eyes normal ocular movement, no icteric - ENT no hearing loss, no congestion - Neck no masses, trachea midline carotid bruit: bilateral - Respiratory normal expansion, normal respiratory effort, clear to auscultation - Cardiovascular Rhythm: regular Abnormal Heart Sounds: systolic murmur - Abdomen Abdomen: soft, non tender, no guarding, no rigid, no rebound - Integumentary no rash, no abnormal pigmentation - Neurologic confused - Musculoskeletal Patient has an open transmetatarsal amputation stump. There is no gross purulence but the inner aspects are a bit mushy. - Psychiatric no oriented to time, no oriented to person, no oriented to place Results - Labs 11/27/16 05:25 11/27/16 05:25 Abnormal Lab Results - Last 24 Hours (Table) 11/26/16 11/26/16 11/26/16 Range/Units 10:27 11:11 16:58 RBC (3.80-5.40) m/uL Hgb (11.4-16.0) gm/dL Hct (34.0-46.0) % RDW (11.5-15.5) % Plt Count (150-450) k/uL BUN (7-17) mg/dL Creatinine (0.52-1.04) mg/dL Glucose (74-99) mg/dL POC Glucose (mg/dL) 108 H 125 H 289 H (75-99) mg/dL Albumin (3.5-5.0) g/dL 11/26/16 11/27/16 11/27/16 Range/Units 20:40 05:25 05:25 RBC 2.45 L (3.80-5.40) m/uL Hgb 7.2 L (11.4-16.0) gm/dL Hct 23.2 L (34.0-46.0) % RDW 16.2 H (11.5-15.5) % Plt Count 569 H (150-450) k/uL BUN 27 H (7-17) mg/dL Creatinine 1.09 H (0.52-1.04) mg/dL Glucose 176 H (74-99) mg/dL POC Glucose (mg/dL) 424 H (75-99) mg/dL Albumin 3.2 L (3.5-5.0) g/dL 11/27/16 Range/Units 06:31 RBC (3.80-5.40) m/uL Hgb (11.4-16.0) gm/dL Hct (34.0-46.0) % RDW (11.5-15.5) % Plt Count (150-450) k/uL BUN (7-17) mg/dL Creatinine (0.52-1.04) mg/dL Glucose (74-99) mg/dL POC Glucose (mg/dL) 117 H (75-99) mg/dL Albumin (3.5-5.0) g/dL Diabetes panel 11/27/16 Range/Units 05:25 Sodium 141 (137-145) mmol/L Potassium 3.8 (3.5-5.1) mmol/L Chloride 103 (98-107) mmol/L Carbon Dioxide 28 (22-30) mmol/L BUN 27 H (7-17) mg/dL Creatinine 1.09 H (0.52-1.04) mg/dL Glucose 176 H (74-99) mg/dL Calcium 8.9 (8.4-10.2) mg/dL AST 18 (14-36) U/L ALT 29 (9-52) U/L Alkaline Phosphatase 63 (38-126) U/L Total Protein 6.5 (6.3-8.2) g/dL Albumin 3.2 L (3.5-5.0) g/dL Calcium panel 11/27/16 Range/Units 05:25 Calcium 8.9 (8.4-10.2) mg/dL Albumin 3.2 L (3.5-5.0) g/dL Pituitary panel 11/27/16 Range/Units 05:25 Sodium 141 (137-145) mmol/L Potassium 3.8 (3.5-5.1) mmol/L Chloride 103 (98-107) mmol/L Carbon Dioxide 28 (22-30) mmol/L BUN 27 H (7-17) mg/dL Creatinine 1.09 H (0.52-1.04) mg/dL Glucose 176 H (74-99) mg/dL Calcium 8.9 (8.4-10.2) mg/dL Adrenal panel 11/27/16 Range/Units 05:25 Sodium 141 (137-145) mmol/L Potassium 3.8 (3.5-5.1) mmol/L Chloride 103 (98-107) mmol/L Carbon Dioxide 28 (22-30) mmol/L BUN 27 H (7-17) mg/dL Creatinine 1.09 H (0.52-1.04) mg/dL Glucose 176 H (74-99) mg/dL Calcium 8.9 (8.4-10.2) mg/dL Total Bilirubin 0.3 (0.2-1.3) mg/dL AST 18 (14-36) U/L ALT 29 (9-52) U/L Alkaline Phosphatase 63 (38-126) U/L Total Protein 6.5 (6.3-8.2) g/dL Albumin 3.2 L (3.5-5.0) g/dL - Imaging Additional studies: CT of the brain: Left basal ganglia subacute infarct Carotid duplex: No hemodynamically significant disease Assessment and Plan Plan: Impression: #1 recent CVA #2 severe altered consciousness #3 type 2 diabetes with poor control #4 open wound right foot. Recommendation: #1 recommend cleaning up the transmet site. Recommend utilizing half-strength peroxide irrigation and gentle packing daily for now. I do not see evidence of obvious infection at this time, however antibiotics would not be a bad idea. If patient does not experience improvement in mental status, a simple below the knee amputation would probably be in order. If she has significant recovery of mental status, we would consider multiple wound treatment methods to either try to close the distal wound or revise it to a higher level. We will continue to follow her as needed during her stay and afterwards. We will also get a lower extremity arterial study to get a bit of an idea about vascular status and what we might expect as its contribution to healing.
[2016-11-27 11:28] LABS: Glucose,Whole Blood 312 mg/dL (75-99)
--- NOTE | 2016-11-27 14:02 | CDI ---
In responding to this query, please exercise your independent professional judgment. The [facility] Coding Staff and Clinical Documentation Specialists appreciate your assistance in clarifying documentation, maintaining compliance with coding guidelines, accurately documenting patients condition and capturing severity of illness. The fact that a question is asked does not imply that any particular answer is desired or expected. Communication forms are a method of clarifying documentation and are not made part of the Legal Health Record. Thank you in advance for your clarification. Last Revision, January 2016 Virgilio Flores [address] [facility] [place] [address] Documentation Clarification Form Date: 11/27/2016 12:58:00 PM From: Ekta Aguila Admit Date: 11/24/2016 6:13:00 PM Patient Name: Catina Sorto Visit Number: [id number] Discharge Date: Dr. Rajwinder Tilley Altered mental status was documented in ER evaluation, in your consult and progress notes. Patient history/risk factors: Atrial Fibrillation, Angina, COPD CVA/TIA, Diabetes Mellitus, Hypertension, Liver disease Clinical Indicators: Arrived in ER with altered mental status. She was lethargic VS: 189/75 99 18 98.4 Labs: WBC 11.7, HGB 7.9, HCT 25.8, NA+ 136 UA: Leukocyte Esterase -Large, urine wbc-many Chest x ray: No acute pulmonary process CT Brain: Suspect subacute infarct basal ganglia on the left, there is evidence of chronic small vessel ischemia. Treatment: Neuro checks per orders Levaquin IV Monitor Labs In your professional opinion, please clarify the etiology of the altered mental status, if known. Encephalopathy Metabolic Encephalopathy Toxic Encephalopathy Other (specify) (specify Type and Underlying Medical Illness) Delirium (specify cause): Dementia (if know, specify Type and if with/without Behavioral Disturbance) Other condition (please specify) Unable to determine Please document in your progress notes and discharge summary in order to capture severity of illness and risk of mortality. Include clinical findings that support your diagnosis. FYI: Press F11 to launch patient chart. Place X here if this finding has no clinical significance, is not applicable or if you are not able to provide any additional documentation. MTDD
[2016-11-27] MEDS ORDERED: HYDROGEN PEROXIDE BOTTLE TOPICAL SCH (15:00)
[2016-11-27 16:52] LABS: Glucose,Whole Blood 372 mg/dL (75-99)
--- NOTE | 2016-11-27 16:54 | PN ---
DATE OF SERVICE: 11/27/2016 CHIEF COMPLAINT: Left-sided CVA. HISTORY OF PRESENT ILLNESS: This lady developed some problems with her right transmetatarsal amputation of the right foot. The wound dehisced and is obviously necrotic. REVIEW OF SYSTEMS: Patient still has dense hemiparesis and difficulty speaking, although she may be a little bit better today. PHYSICAL EXAMINATION: She is afebrile. CHEST: Clear. CARDIAC: Normal. ABDOMEN: Soft, nontender. IMPRESSION: 1. Left-sided cerebrovascular accident. 2. Wound infection, dehiscence and gangrene of the right distal foot amputation. PLAN: Vascular surgery evaluation. This foot will probably have to be revised to a Syme amputation.
--- NOTE | 2016-11-27 17:32 | P.PN ---
Progress Note - Text This is a pleasant 66-year-old female patient with a known peripheral arterial disease, hypertension, and dyslipidemia, was admitted to the hospital after she was diagnosed with acute CVA. We get involved in the care of the patient because her troponin was checked and came in to be slightly abnormal. The patient does not recall having any symptoms of chest pain or chest discomfort. Clinically, the patient continues to be aphasic. Hemodynamically she continues to be stable. She underwent an echocardiogram which showed preserved LV function with evidence of mild aortic stenosis. I will continue the patient on the current medical treatment. We'll continue following up with the patient tomorrow. The patient is receiving Brilinta for possible coronary artery disease and prior stenting. There is no documentation of any coronary artery disease or stenting in this hospital.
[2016-11-27] MEDS: LEVOFLOXACIN 500MG-D5W PMX 500 MG in DEXTROSE/WATER 1 100ML.BAG IVPB SCH (17:57)
[2016-11-27] MEDS: HYDROGEN PEROXIDE TOPICAL SCH ×2 (18:08)
[2016-11-27 20:37] LABS: Glucose,Whole Blood 437 mg/dL (75-99)
[2016-11-27] MEDS: TERAZOSIN 2 MG CAP PO SCH (21:30)
[2016-11-27] MEDS: DEXTROSE 5%-0.2% NACL 1,000 ML IV SCH (21:31)
[2016-11-27] MEDS: INSULIN DETEMIR 100 UNIT/ML 10 ML VIAL SQ SCH (21:35)
[2016-11-27] MEDS ORDERED: INSULIN LISPRO (humaLOG) 300 UNIT/3 ML VIAL SQ ONE (22:32)
[2016-11-28 01:58] LABS: Glucose,Whole Blood 100 mg/dL (75-99)
[2016-11-28 06:03] LABS: Glucose,Whole Blood 35 mg/dL (75-99)
[2016-11-28] MEDS ORDERED: DEXTROSE 50%-WATER 50 ML SYRINGE IVP ONE (06:03)
[2016-11-28 06:08] LABS: Basophils % (A) 0 %; Eosinophils # (A) 0.3 k/uL (0-0.7); Eosinophils % (A) 3 %; HCT 28.4 % (34.0-46.0); HDW 3.67; HGB 8.6 gm/dL (11.4-16.0); Hypochromasia Moderate; Luc # (Auto) 0.16; Luc % (Auto) 2; Lymphocytes # (A) 2.2 k/uL (1.0-4.8); Lymphocytes % (A) 20 %; MCH 28.5 pg (25.0-35.0); MCHC 30.4 g/dL (31.0-37.0); MCV 93.6 fL (80.0-100.0); Mean Platelet Volume 7.1; Monocytes # (A) 0.7 k/uL (0-1.0); Monocytes % (A) 6 %; Neutrophils # (A) 7.4 k/uL (1.3-7.7); Neutrophils % (A) 69 %; Poikilocytosis Slight; RBC 3.03 m/uL (3.80-5.40); RDW 15.9 % (11.5-15.5); WBC 10.7 k/uL (3.8-10.6); WBC (Perox) 11.91
[2016-11-28] MEDS: INSULIN LISPRO (humaLOG) 300 UNIT/3 ML VIAL SQ SCH ×4 (06:09→20:59)
[2016-11-28 06:25] LABS: Calcium 9.5 mg/dL (8.4-10.2); Total Bilirubin 0.4 mg/dL (0.2-1.3); Total Protein 7.6 g/dL (6.3-8.2)
[2016-11-28 06:32] LABS: Glucose,Whole Blood 145 mg/dL (75-99)
[2016-11-28] MEDS: LEVALBUTEROL NEB 1.25 MG/3 ML AMP INHALATION SCH ×3 (07:34→20:26)
[2016-11-28] MEDS: HYDROGEN PEROXIDE TOPICAL SCH ×2 (08:02)
[2016-11-28] MEDS: FUROSEMIDE 10 MG/ML 4 ML VIAL IV SCH ×2 (08:03→20:59)
[2016-11-28] MEDS: amLODIPine 5 MG TAB PO SCH (08:03)
[2016-11-28] MEDS: POTASSIUM CHLORIDE ER 20 MEQ TAB.ER PO SCH ×2 (08:03→20:59)
[2016-11-28] MEDS: LISINOPRIL 10 MG TAB PO SCH (08:03)
[2016-11-28] MEDS: TICAGRELOR 90 MG TAB PO SCH ×2 (08:03→20:59)
[2016-11-28] MEDS: CARVEDILOL 12.5 MG TAB PO SCH ×2 (08:04→16:55)
[2016-11-28] MEDS: ENOXAPARIN 40 MG/0.4 ML SYRINGE SQ SCH (08:04)
[2016-11-28] MEDS: ASPIRIN 81 MG CHEW PO SCH (08:04)
[2016-11-28] MEDS: FENOFIBRATE 160 MG TAB PO SCH (08:05)
[2016-11-28] MEDS: FAMOTIDINE 20 MG TAB PO SCH (08:05)
[2016-11-28] MEDS: carBAMazepine 200 MG TAB PO SCH ×3 (08:06→20:59)
[2016-11-28 11:13] LABS: Glucose,Whole Blood 268 mg/dL (75-99)
--- NOTE | 2016-11-28 11:59 | P.PN ---
Subjective Principal diagnosis: CAD/A. fib This is a pleasant 66-year-old female patient with a known CAD/PAD, hypertension, and dyslipidemia, diabetes, was admitted to the hospital after she was diagnosed with acute CVA. We get involved in the care of the patient because her troponin was checked and came in to be slightly abnormal. The patient does not recall having any symptoms of chest pain or chest discomfort. Clinically, the patient continues to be aphasic. Hemodynamically she continues to be stable. She underwent an echocardiogram which showed preserved LV function with evidence of mild aortic stenosis. She was experiencing shortness of breath yesterday and she was started on Lasix IV. I will continue the patient on the current medical treatment. We'll continue following up with the patient tomorrow. The patient is receiving Brilinta for possible coronary artery disease and prior stenting. There is no documentation of any coronary artery disease or stenting in this hospital. Objective - Vital Signs Vital signs: Vital Signs Temp 98.2 F 11/28/16 08:00 Pulse 73 11/28/16 08:00 Resp 16 11/28/16 08:00 BP 126/60 11/28/16 08:00 Pulse Ox 94 L 11/28/16 08:00 Intake & Output 11/27/16 11/28/16 11/28/16 18:59 06:59 18:59 Intake Total 944 80 236 Output Total 500 700 Balance 444 -620 236 Weight 62.1 kg Intake: Intake, IV Titration 80 Amount Dextrose 5%-0.2% NaCl 1, 80 000 ml @ 10 mls/hr IV . Q24H ASYA Rx#:[id number] Oral 944 236 Output: Urine 500 700 Other: Voiding Method Indwelling Catheter Indwelling Catheter Indwelling Catheter # Voids 0 - Constitutional General appearance: Present: no acute distress - Respiratory Respiratory: bilateral: diminished - Cardiovascular Rhythm: regular Heart sounds: normal: S1, S2 - Labs CBC & Chem 7: 11/28/16 05:48 11/28/16 05:48 Labs: Abnormal Lab Results - Last 24 Hours (Table) 11/27/16 11/27/16 11/28/16 Range/Units 16:51 20:36 01:56 WBC (3.8-10.6) k/uL RBC (3.80-5.40) m/uL Hgb (11.4-16.0) gm/dL Hct (34.0-46.0) % MCHC (31.0-37.0) g/dL RDW (11.5-15.5) % Plt Count (150-450) k/uL BUN (7-17) mg/dL Creatinine (0.52-1.04) mg/dL Glucose (74-99) mg/dL POC Glucose (mg/dL) 372 H 437 H 100 H (75-99) mg/dL 11/28/16 11/28/16 11/28/16 Range/Units 05:48 05:48 06:02 WBC 10.7 H (3.8-10.6) k/uL RBC 3.03 L (3.80-5.40) m/uL Hgb 8.6 L (11.4-16.0) gm/dL Hct 28.4 L (34.0-46.0) % MCHC 30.4 L (31.0-37.0) g/dL RDW 15.9 H (11.5-15.5) % Plt Count 737 H (150-450) k/uL BUN 33 H (7-17) mg/dL Creatinine 1.11 H (0.52-1.04) mg/dL Glucose 32 L* (74-99) mg/dL POC Glucose (mg/dL) 35 L (75-99) mg/dL 11/28/16 11/28/16 Range/Units 06:31 11:11 WBC (3.8-10.6) k/uL RBC (3.80-5.40) m/uL Hgb (11.4-16.0) gm/dL Hct (34.0-46.0) % MCHC (31.0-37.0) g/dL RDW (11.5-15.5) % Plt Count (150-450) k/uL BUN (7-17) mg/dL Creatinine (0.52-1.04) mg/dL Glucose (74-99) mg/dL POC Glucose (mg/dL) 145 H 268 H (75-99) mg/dL Microbiology - Last 24 Hours (Table) 11/27/16 05:50 Gram Stain - Preliminary Foot - Right Wound Culture - Preliminary Presumptive MRSA 11/27/16 05:50 Anaerobic Culture - Preliminary Foot - Right Assessment and Plan Plan: Assessment #1 stroke #2 expressive aphagia secondary to the above #3 mildly abnormal cardiac enzymes #4 CAD/PAD #5 preserved LV function Plan #1 continue the current medical treatment #2 continue the IV Lasix for additional 24 hours #3 follow-up with the patient
--- NOTE | 2016-11-28 12:18 | P.PN ---
Progress Note - Text Vascular note: Neurologic status still in question. Foot stable. Continue to try to clean up the foot. Once we have a better idea about neurologic status, we will make a decision regarding further intervention for her foot.
--- NOTE | 2016-11-28 13:52 | PN ---
CHIEF COMPLAINT: CVA and uncontrolled diabetes. HISTORY OF PRESENT ILLNESS: This lady is fairly stable and her blood sugars are still quite erratic. They went up quite high last night. PHYSICAL EXAM: She is awake and alert, but still cannot speak normally. She still has a dense right hemiparesis. Chest is clear. Cardiac exam is normal. IMPRESSION: 1. Left-sided cerebrovascular accident. 2. Uncontrolled diabetes mellitus. 3. Status post amputation of the right foot with wound failure and gangrene. PLAN: Continue efforts to try to bring blood sugars under control.
[2016-11-28] MEDS: LEVOFLOXACIN 500MG-D5W PMX 500 MG in DEXTROSE/WATER 1 100ML.BAG IVPB SCH (14:51)
[2016-11-28 16:18] LABS: Glucose,Whole Blood 348 mg/dL (75-99)
[2016-11-28 20:45] LABS: Glucose,Whole Blood 286 mg/dL (75-99)
[2016-11-28] MEDS: TERAZOSIN 2 MG CAP PO SCH (20:59)
[2016-11-28] MEDS: INSULIN DETEMIR 100 UNIT/ML 10 ML VIAL SQ SCH (20:59)
[2016-11-28] MEDS: DEXTROSE 5%-0.2% NACL 1,000 ML IV SCH (21:10)
[2016-11-29 03:20] LABS: Glucose,Whole Blood 191 mg/dL (75-99)
[2016-11-29] MEDS: INSULIN LISPRO (humaLOG) 300 UNIT/3 ML VIAL SQ SCH ×4 (06:14→21:14)
[2016-11-29] MEDS ORDERED: DEXTROSE 50%-WATER 50 ML SYRINGE IVP ONE (06:16)
[2016-11-29 06:18] LABS: Glucose,Whole Blood 54 mg/dL (75-99)
[2016-11-29] MEDS: CARVEDILOL 12.5 MG TAB PO SCH ×2 (06:29→07:37)
[2016-11-29 06:33] LABS: Glucose,Whole Blood 180 mg/dL (75-99)
[2016-11-29 06:57] LABS: Basophils # (A) 0.1 k/uL (0-0.2); Basophils % (A) 1 %; CH 29.3; CHCM 31.1; Eosinophils # (A) 0.4 k/uL (0-0.7); Eosinophils % (A) 2 %; HCT 26.7 % (34.0-46.0); HDW 3.69; HGB 8.1 gm/dL (11.4-16.0); Hypochromasia Marked; Luc # (Auto) 0.19; Luc % (Auto) 1; Lymphocytes # (A) 2.7 k/uL (1.0-4.8); Lymphocytes % (A) 18 %; MCH 28.7 pg (25.0-35.0); MCHC 30.4 g/dL (31.0-37.0); MCV 94.4 fL (80.0-100.0); Mean Platelet Volume 7.5; Monocytes # (A) 0.9 k/uL (0-1.0); Monocytes % (A) 6 %; Neutrophils % (A) 73 %; Poikilocytosis Slight; RBC 2.82 m/uL (3.80-5.40); RDW 15.8 % (11.5-15.5); WBC 15.1 k/uL (3.8-10.6); WBC (Perox) 15.55
[2016-11-29] MEDS: HYDROGEN PEROXIDE TOPICAL SCH ×2 (07:36)
[2016-11-29] MEDS: amLODIPine 5 MG TAB PO SCH (07:37)
[2016-11-29] MEDS: POTASSIUM CHLORIDE ER 20 MEQ TAB.ER PO SCH ×2 (07:37→21:08)
[2016-11-29] MEDS: FAMOTIDINE 20 MG TAB PO SCH (07:37)
[2016-11-29] MEDS: carBAMazepine 200 MG TAB PO SCH ×3 (07:37→21:09)
[2016-11-29] MEDS: ASPIRIN 81 MG CHEW PO SCH (07:37)
[2016-11-29] MEDS: LISINOPRIL 10 MG TAB PO SCH (07:37)
[2016-11-29] MEDS: TICAGRELOR 90 MG TAB PO SCH ×2 (07:37→21:09)
[2016-11-29] MEDS: FENOFIBRATE 160 MG TAB PO SCH (07:37)
[2016-11-29] MEDS: ENOXAPARIN 40 MG/0.4 ML SYRINGE SQ SCH (07:38)
[2016-11-29] MEDS: FUROSEMIDE 10 MG/ML 4 ML VIAL IV SCH (07:38)
[2016-11-29] MEDS: LEVALBUTEROL NEB 1.25 MG/3 ML AMP INHALATION SCH ×3 (08:32→21:12)
--- NOTE | 2016-11-29 10:51 | P.PN ---
Subjective Principal diagnosis: CAD/A. fib This is a pleasant 66-year-old female patient with a known CAD/PAD, hypertension, and dyslipidemia, diabetes, was admitted to the hospital after she was diagnosed with acute CVA. We get involved in the care of the patient because her troponin was checked and came in to be slightly abnormal. The patient does not recall having any symptoms of chest pain or chest discomfort. Clinically, the patient continues to be aphasic. Hemodynamically she continues to be stable. She underwent an echocardiogram which showed preserved LV function with evidence of mild aortic stenosis. She was experiencing shortness of breath yesterday and she was started on Lasix IV. on follow-up with the patient today, she continues to be aphasic. She is laying flat in bed and she does not seems to be dyspneic. I am going to DC the Lasix IV and start Lasix by mouth. Continue the current medical treatment. At certain points, the patient need to have a peripheral angiogram to rule out any severe underlying CAD behind her critical limb ischemia. Objective - Vital Signs Vital signs: Vital Signs Temp 98.2 F 11/29/16 08:00 Pulse 80 11/29/16 08:50 Resp 16 11/29/16 08:00 BP 113/58 11/29/16 08:00 Pulse Ox 96 11/29/16 08:00 Intake & Output 11/28/16 11/29/16 11/29/16 18:59 06:59 18:59 Intake Total 986 220 100 Output Total 1700 400 Balance -714 -180 100 Weight 59 kg 59 kg Intake: IV 100 Dextrose 5%-0.2% NaCl 1, 100 000 ml @ 10 mls/hr IV . Q24H ASYA Rx#:[id number] Intake, IV Titration 210 Amount Dextrose 5%-0.2% NaCl 1, 110 000 ml @ 10 mls/hr IV . Q24H ASYA Rx#:[id number] Levofloxacin 500Mg-D5w 100 Pmx 500 mg In Dextrose/ Water 1 100ml.bag @ 100 mls/hr IVPB Q24H ASYA Rx#: [id number] Oral 776 120 100 Output: Urine 1700 400 Uretheral (Silva) 400 Other: Voiding Method Indwelling Catheter Indwelling Catheter Indwelling Catheter # Voids 0 - Constitutional General appearance: Present: no acute distress - Respiratory Respiratory: bilateral: diminished - Cardiovascular Heart sounds: normal: S1, S2 - Labs CBC & Chem 7: 11/29/16 06:19 11/28/16 05:48 Labs: Abnormal Lab Results - Last 24 Hours (Table) 11/28/16 11/28/16 11/28/16 Range/Units 11:11 16:16 20:43 WBC (3.8-10.6) k/uL RBC (3.80-5.40) m/uL Hgb (11.4-16.0) gm/dL Hct (34.0-46.0) % MCHC (31.0-37.0) g/dL RDW (11.5-15.5) % Plt Count (150-450) k/uL Neutrophils # (1.3-7.7) k/uL POC Glucose (mg/dL) 268 H 348 H 286 H (75-99) mg/dL 11/29/16 11/29/16 11/29/16 Range/Units 03:00 06:12 06:19 WBC 15.1 H (3.8-10.6) k/uL RBC 2.82 L (3.80-5.40) m/uL Hgb 8.1 L (11.4-16.0) gm/dL Hct 26.7 L (34.0-46.0) % MCHC 30.4 L (31.0-37.0) g/dL RDW 15.8 H (11.5-15.5) % Plt Count 720 H (150-450) k/uL Neutrophils # 11.0 H (1.3-7.7) k/uL POC Glucose (mg/dL) 191 H 54 L (75-99) mg/dL 11/29/16 Range/Units 06:31 WBC (3.8-10.6) k/uL RBC (3.80-5.40) m/uL Hgb (11.4-16.0) gm/dL Hct (34.0-46.0) % MCHC (31.0-37.0) g/dL RDW (11.5-15.5) % Plt Count (150-450) k/uL Neutrophils # (1.3-7.7) k/uL POC Glucose (mg/dL) 180 H (75-99) mg/dL Microbiology - Last 24 Hours (Table) 11/27/16 05:50 Gram Stain - Preliminary Foot - Right Wound Culture - Preliminary Presumptive MRSA Assessment and Plan Plan: Assessment #1 strokeseems to be acute #2 expressive aphagia secondary to the above #3 mildly abnormal cardiac enzymes #4 CAD/PAD #5 preserved LV function #6 mild congestive heart failure secondary to diastole dysfunction Plan #1 continue the current medical treatment #2 switched to Lasix by mouth #3 follow-up with the patient
--- NOTE | 2016-11-29 11:10 | P.PN ---
Progress Note - Text Vascular Surgery Nursing Progress Note Patient remains with altered mental status. Vital Signs - 24 hr 11/28/16 11/28/16 11/28/16 12:00 12:55 13:09 Temperature 98.0 F Pulse Rate 74 74 Pulse Rate [ 74 [employer] ] Respiratory 16 Rate Blood Pressure 121/64 [Left Arm Supine] Blood Pressure [Right Arm Supine] O2 Sat by Pulse 93 L Oximetry 11/28/16 11/28/16 11/28/16 16:00 20:00 20:28 Temperature 98.8 F 99.3 F Pulse Rate 70 Pulse Rate [ 79 88 [employer] ] Respiratory 16 16 Rate Blood Pressure 118/68 [Left Arm Supine] Blood Pressure 159/69 [Right Arm Supine] O2 Sat by Pulse 94 L 97 Oximetry 11/28/16 11/29/16 11/29/16 20:39 00:00 04:00 Temperature 98.6 F Pulse Rate 72 Pulse Rate [ 87 87 [employer] ] Respiratory 16 16 Rate Blood Pressure [Left Arm Supine] Blood Pressure 137/66 137/63 [Right Arm Supine] O2 Sat by Pulse 98 97 Oximetry 11/29/16 11/29/16 11/29/16 08:00 08:40 08:50 Temperature 98.2 F Pulse Rate 82 80 Pulse Rate [ 80 [employer] ] Respiratory 16 Rate Blood Pressure 113/58 [Left Arm Supine] Blood Pressure [Right Arm Supine] O2 Sat by Pulse 96 Oximetry Labs: Short CBC 11/29/16 Range/Units 06:19 WBC 15.1 H (3.8-10.6) k/uL Hgb 8.1 L (11.4-16.0) gm/dL Hct 26.7 L (34.0-46.0) % Plt Count 720 H (150-450) k/uL Neutrophils # 11.0 H (1.3-7.7) k/uL Wound appears stable. Plan: Continue current treatment
[2016-11-29 12:03] LABS: Glucose,Whole Blood 177 mg/dL (75-99)
[2016-11-29] MEDS: LEVOFLOXACIN 500MG-D5W PMX 500 MG in DEXTROSE/WATER 1 100ML.BAG IVPB SCH (14:29)
[2016-11-29 17:02] LABS: Glucose,Whole Blood 185 mg/dL (75-99)
[2016-11-29] MEDS: FUROSEMIDE 40 MG TAB PO SCH (17:15)
[2016-11-29 20:23] LABS: Glucose,Whole Blood 385 mg/dL (75-99)
[2016-11-29] MEDS: TERAZOSIN 2 MG CAP PO SCH (21:08)
[2016-11-29] MEDS: INSULIN DETEMIR 100 UNIT/ML 10 ML VIAL SQ SCH (21:14)
--- NOTE | 2016-11-29 22:21 | PN ---
DATE OF SERVICE: 11/29/2016 CHIEF COMPLAINT: Cerebrovascular accident, diabetes, and necrosis of the right distal foot amputation. HISTORY OF PRESENT ILLNESS: This lady is just about the same. She seems a little bit more alert, she is trying to talk, but she is still very weak on the right. PHYSICAL EXAMINATION: Color is good. Chest clear. CARDIAC: Unremarkable. ABDOMEN: Soft, nontender. IMPRESSION: 1. Left-sided cerebrovascular accident. 2. Gangrene of the right distal foot following amputation. PLAN: Continue on current program and start to work on a discharge plan.
[2016-11-30 02:43] LABS: Glucose,Whole Blood 165 mg/dL (75-99)
[2016-11-30] MEDS: DEXTROSE 5%-0.2% NACL 1,000 ML IV SCH ×2 (04:24→21:31)
[2016-11-30 06:10] LABS: Glucose,Whole Blood 87 mg/dL (75-99)
[2016-11-30] MEDS: INSULIN LISPRO (humaLOG) 300 UNIT/3 ML VIAL SQ SCH ×4 (06:19→21:29)
[2016-11-30 06:32] LABS: Basophils % (A) 0 %; CH 29.5; CHCM 31.4; Eosinophils # (A) 0.5 k/uL (0-0.7); Eosinophils % (A) 4 %; HDW 3.78; HGB 8.2 gm/dL (11.4-16.0); Hypochromasia Marked; Luc # (Auto) 0.13; Luc % (Auto) 1; Lymphocytes # (A) 1.7 k/uL (1.0-4.8); Lymphocytes % (A) 16 %; MCH 28.6 pg (25.0-35.0); MCHC 30.4 g/dL (31.0-37.0); MCV 94.1 fL (80.0-100.0); Mean Platelet Volume 7.6; Monocytes # (A) 0.7 k/uL (0-1.0); Monocytes % (A) 6 %; Neutrophils % (A) 72 %; Poikilocytosis Slight; RBC 2.87 m/uL (3.80-5.40); RDW 15.7 % (11.5-15.5); WBC (Perox) 11.97
[2016-11-30] MEDS: CARVEDILOL 12.5 MG TAB PO SCH ×2 (06:45→17:24)
[2016-11-30] MEDS: LEVALBUTEROL NEB 1.25 MG/3 ML AMP INHALATION SCH ×2 (07:58→13:51)
[2016-11-30] MEDS: ENOXAPARIN 40 MG/0.4 ML SYRINGE SQ SCH (08:29)
[2016-11-30] MEDS: FUROSEMIDE 40 MG TAB PO SCH ×2 (08:29→15:08)
[2016-11-30] MEDS: TICAGRELOR 90 MG TAB PO SCH ×2 (08:29→21:31)
[2016-11-30] MEDS: POTASSIUM CHLORIDE ER 20 MEQ TAB.ER PO SCH ×2 (08:29→21:31)
[2016-11-30] MEDS: LISINOPRIL 10 MG TAB PO SCH (08:30)
[2016-11-30] MEDS: ASPIRIN 81 MG CHEW PO SCH (08:30)
[2016-11-30] MEDS: FAMOTIDINE 20 MG TAB PO SCH (08:30)
[2016-11-30] MEDS: amLODIPine 5 MG TAB PO SCH (08:30)
[2016-11-30] MEDS: FENOFIBRATE 160 MG TAB PO SCH (08:30)
[2016-11-30] MEDS: HYDROGEN PEROXIDE TOPICAL SCH ×2 (08:31)
[2016-11-30] MEDS: carBAMazepine 200 MG TAB PO SCH ×3 (08:31→21:31)
--- NOTE | 2016-11-30 10:00 | P.PN ---
Progress Note - Text Subjective: Patient is alert but still has a severe expressive aphasia. Objective: On interview, the patient still appears to not understand enough to even reliably nod yes or no. The right transmetatarsal amputation stump is cleaning up a bit. There is still a lot of necrotic tissue in the area. Her Doppler study suggests adequate circulatory status. Assessment: Neurologically improving slightly. Still severely impaired. Right foot will either require short transmetatarsal amputation revision or BKA Plan: I discussed the case with Dr. Carney. We will discuss it with the family. If they wish to be aggressive, we may consider an angiogram.
[2016-11-30 11:51] LABS: Glucose,Whole Blood 229 mg/dL (75-99)
--- NOTE | 2016-11-30 12:32 | P.PN ---
Subjective Principal diagnosis: CVA This is a 66-year-old female who was admitted to the hospital with an acute CVA. Cardiology was initially asked to see the patient because of abnormal troponins. Patient's troponin was not consistent with acute coronary syndrome. An echocardiogram with Doppler study was performed which revealed normal left ventricular systolic function. Repeat CAT scan of the brain revealed subacute infarct in the basal ganglia on the left. Patient was seen and examined today, continues to be aphasic, able to move right arm and right leg. Currently on by mouth Lasix. At some point down the road patient will need to have a peripheral angiogram to rule out any severe underlying CAD behind her critical limb ischemia. Objective - Vital Signs Vital signs: Vital Signs Temp 98.2 F 11/30/16 08:00 Pulse 72 11/30/16 08:07 Resp 18 11/30/16 08:00 BP 98/51 11/30/16 08:00 Pulse Ox 95 11/30/16 08:00 Intake & Output 11/29/16 11/30/16 11/30/16 18:59 06:59 18:59 Intake Total 370 540 236 Output Total 1250 475 350 Balance -880 65 -114 Weight 59 kg 57 kg 57 kg Intake: IV 70 100 Dextrose 5%-0.2% NaCl 1, 70 100 000 ml @ 10 mls/hr IV . Q24H [facility] Rx#:[id number] Oral 300 440 236 Output: Urine 1250 475 350 Other: Voiding Method Indwelling Catheter Indwelling Catheter Indwelling Catheter # Voids 0 0 - Exam PHYSICAL EXAMINATION: HEENT: Head is atraumatic, normocephalic. Pupils equal, round. Neck is supple. There is no elevated jugular venous pressure. HEART EXAMINATION: Heart S1 and S2 systolic murmur is heard. CHEST EXAMINATION: Lungs are clear to auscultation and precussion. No chest wall tenderness is noted on palpation or with deep breathing. ABDOMEN: Soft, nontender. Bowel sounds are heard. No organomegaly noted. EXTREMITIES: 1+ peripheral pulses with no evidence of peripheral edema and no calf tenderness noted. Dressing in place to the right foot. NEUROLOGIC [patient is awake, positive expressive aphasia, mild right-sided arm and leg weakness. - Labs CBC & Chem 7: 11/30/16 06:07 11/28/16 05:48 Labs: Abnormal Lab Results - Last 24 Hours (Table) 11/29/16 11/29/16 11/30/16 Range/Units 16:55 20:21 02:39 WBC (3.8-10.6) k/uL RBC (3.80-5.40) m/uL Hgb (11.4-16.0) gm/dL Hct (34.0-46.0) % MCHC (31.0-37.0) g/dL RDW (11.5-15.5) % Plt Count (150-450) k/uL Neutrophils # (1.3-7.7) k/uL POC Glucose (mg/dL) 185 H 385 H 165 H (75-99) mg/dL 11/30/16 11/30/16 Range/Units 06:07 11:50 WBC 11.0 H (3.8-10.6) k/uL RBC 2.87 L (3.80-5.40) m/uL Hgb 8.2 L (11.4-16.0) gm/dL Hct 27.0 L (34.0-46.0) % MCHC 30.4 L (31.0-37.0) g/dL RDW 15.7 H (11.5-15.5) % Plt Count 614 H (150-450) k/uL Neutrophils # 8.0 H (1.3-7.7) k/uL POC Glucose (mg/dL) 229 H (75-99) mg/dL Microbiology - Last 24 Hours (Table) 11/27/16 05:50 Gram Stain - Final Foot - Right Wound Culture - Final Methicillin resist S. aureus 11/27/16 05:50 Anaerobic Culture - Preliminary Foot - Right Assessment and Plan Plan: Assessment and plan #1 acute CVA, #2 hypertension #3 hyperlipidemia #4 diabetes #5 PAD with prior trans-metatarsal amputation of the right foot, angioplasty of the distal right SFA with stenting of the right popliteal #6 hypomagnesemia #7 mildly abnormal troponins, not consistent with acute coronary syndrome, could be secondary to acute CVA. 0.015, .017, 0.027. #8 coronary artery disease with prior right coronary artery drug-eluting stent placement #9 prior nicotine dependence Plan From cardiology's perspective, we'll continue current medications. We'll follow this patient with you now on an as-needed basis only, please hesitate to call with any questions. DNP note has been reviewed, I agree with a documented findings and plan of care. Patient was seen and examined.
[2016-11-30] MEDS: LEVOFLOXACIN 500MG-D5W PMX 500 MG in DEXTROSE/WATER 1 100ML.BAG IVPB SCH (15:07)
--- NOTE | 2016-11-30 15:25 | P.PN ---
Subjective A 66-year-old female resting in bed. Patient is followed by multiple consulting physicians recommendations were noted appreciated and reviewed. Patient remains aphasic. Hospital course 66-year-old female who was transferred from [facility] on the November 24 patient was noted to be experiencing right upper extremity weakness with right facial droop with expressive aphasia. Patient reportedly had a CAT scan done at [facility] reported as normal was transferred to [facility] to be evaluated for the above-mentioned symptoms it's noted that the patient was seen by neurology service was felt to have an subacute infarct in the basal ganglion on the left per repeat CAT scan of the brain. Is also noted that the patient had recently undergone a right transmetatarsal amputation suspect due to necrotic tissue in the area. A vascular consultation was requested. Patient's been followed by . Dr. Keith Additionally a cardiology consultation was requested because of abnormal troponin levels. The troponins were not consistent with an acute coronary syndrome. Patient did have an echocardiogram which did show normal LV systolic function. The EF was calculated 55-60%. There was no evidence of pulmonary hypertension no valvular heart disease PT OT eval which they did participate in the plan of care. Vascular and cardiology indicate that at some point patient will need peripheral angiogram to rule out any severe underlying coronary artery disease behind her critical limb ischemia Objective - Vital Signs Vital signs: Vital Signs Temp 98.8 F 11/30/16 12:00 Pulse 69 11/30/16 14:01 Resp 18 11/30/16 12:00 BP 106/56 11/30/16 12:00 Pulse Ox 94 L 11/30/16 12:00 Intake & Output 11/29/16 11/30/16 11/30/16 18:59 06:59 18:59 Intake Total 370 540 236 Output Total 1250 475 350 Balance -880 65 -114 Weight 59 kg 57 kg 57 kg Intake: IV 70 100 Dextrose 5%-0.2% NaCl 1, 70 100 000 ml @ 10 mls/hr IV . Q24H [facility] Rx#:[id number] Oral 300 440 236 Output: Urine 1250 475 350 Other: Voiding Method Indwelling Catheter Indwelling Catheter Indwelling Catheter # Voids 0 0 - Exam Physical exam 66-year-old female sitting up in bed is awake is alert remains aphasic Lungs essentially clear adequate air movement Heart S1-S2 audible regular Abdomen soft nontender Extremities there is a dressing to the right foot which is dry no edema noted - Labs CBC & Chem 7: 11/30/16 06:07 11/28/16 05:48 Labs: Abnormal Lab Results - Last 24 Hours (Table) 11/29/16 11/29/16 11/30/16 Range/Units 16:55 20:21 02:39 WBC (3.8-10.6) k/uL RBC (3.80-5.40) m/uL Hgb (11.4-16.0) gm/dL Hct (34.0-46.0) % MCHC (31.0-37.0) g/dL RDW (11.5-15.5) % Plt Count (150-450) k/uL Neutrophils # (1.3-7.7) k/uL POC Glucose (mg/dL) 185 H 385 H 165 H (75-99) mg/dL 11/30/16 11/30/16 Range/Units 06:07 11:50 WBC 11.0 H (3.8-10.6) k/uL RBC 2.87 L (3.80-5.40) m/uL Hgb 8.2 L (11.4-16.0) gm/dL Hct 27.0 L (34.0-46.0) % MCHC 30.4 L (31.0-37.0) g/dL RDW 15.7 H (11.5-15.5) % Plt Count 614 H (150-450) k/uL Neutrophils # 8.0 H (1.3-7.7) k/uL POC Glucose (mg/dL) 229 H (75-99) mg/dL Microbiology - Last 24 Hours (Table) 11/27/16 05:50 Gram Stain - Final Foot - Right Wound Culture - Final Methicillin resist S. aureus 11/27/16 05:50 Anaerobic Culture - Preliminary Foot - Right Assessment and Plan Plan: Impression Present on admission acute metabolic encephalopathy suspect due to subacute infarcts nasal cannula and on the left CAT scan of the brain evidence of chronic small vessel ischemic changes suspect dementia with no behavior changes Present on admission open wound right foot with a positive wound culture for MRSA History of hypertension Type 2 diabetes insulin requiring controlled hemoglobin A1c 6.8 Peripheral artery disease with a prior transmetatarsal amputation of the right foot angioplasty of the distal right SFA Plan Continue the recommendations from CONSULTING physicians reviewed and recognized appreciated Antibiotics per infectious disease DVT and GI prophylaxis Further recommendations pending will follow PT OT eval The above dictated assessment and findings were discussed with dr bentley Impression and the plan of care have been dictated as directed. Maureen Tucker nurse practitioner acting as a scribe for dr bentley
[2016-11-30 16:54] LABS: Glucose,Whole Blood 383 mg/dL (75-99)
--- NOTE | 2016-11-30 19:18 | PN ---
DATE OF SERVICE: 11/30/2016 CHIEF COMPLAINT: CVA, diabetes, necrosis and gangrene of the right distal foot wound. HISTORY OF PRESENT ILLNESS: This lady is showing some signs of improvement. Speech is coming back a little bit and she has better movement on the right. PHYSICAL EXAMINATION: Her chest is clear. Cardiac exam is normal. Her abdomen is soft, nontender. Strength on the right is better and her speech is better. IMPRESSION: 1. Left-sided cerebrovascular accident. 2. Infected distal right foot wound with gangrene. PLAN: Continue to increase activity. Start to work on a discharge plan.
[2016-11-30] MEDS: ALBUTEROL NEBULIZED 2.5 MG/3 ML INHALATION SCH (20:40)
[2016-11-30 20:45] LABS: Glucose,Whole Blood 364 mg/dL (75-99)
[2016-11-30] MEDS: INSULIN DETEMIR 100 UNIT/ML 10 ML VIAL SQ SCH (21:29)
[2016-11-30] MEDS: SULFAMETHOX-TMP 800-160MG 1 EACH TAB PO SCH (21:31)
[2016-11-30] MEDS: TERAZOSIN 2 MG CAP PO SCH (21:34)
[2016-12-01 01:49] LABS: Glucose,Whole Blood 104 mg/dL (75-99)
[2016-12-01 05:47] LABS: Glucose,Whole Blood 60 mg/dL (75-99)
[2016-12-01] MEDS ORDERED: DEXTROSE 50%-WATER 50 ML SYRINGE IVP STA (05:48)
[2016-12-01 06:15] LABS: Glucose,Whole Blood 188 mg/dL (75-99)
[2016-12-01] MEDS ORDERED: INSULIN DETEMIR 100 UNIT/ML 10 ML VIAL SQ SCH (06:34)
[2016-12-01] MEDS: INSULIN LISPRO (humaLOG) 300 UNIT/3 ML VIAL SQ SCH ×4 (06:35→21:11)
[2016-12-01] MEDS: CARVEDILOL 12.5 MG TAB PO SCH ×2 (06:55→17:18)
[2016-12-01] MEDS: ALBUTEROL NEBULIZED 2.5 MG/3 ML INHALATION SCH ×4 (07:54→19:42)
[2016-12-01 07:56] LABS: Basophils % (A) 0 %; CH 29.6; CHCM 32.1; Eosinophils # (A) 0.6 k/uL (0-0.7); Eosinophils % (A) 5 %; HCT 27.2 % (34.0-46.0); HDW 3.94; HGB 8.3 gm/dL (11.4-16.0); Hypochromasia Moderate; Luc # (Auto) 0.14; Luc % (Auto) 1; Lymphocytes # (A) 1.8 k/uL (1.0-4.8); Lymphocytes % (A) 14 %; MCH 28.2 pg (25.0-35.0); MCHC 30.7 g/dL (31.0-37.0); MCV 91.9 fL (80.0-100.0); Mean Platelet Volume 7.7; Monocytes # (A) 0.7 k/uL (0-1.0); Monocytes % (A) 6 %; Neutrophils # (A) 9.6 k/uL (1.3-7.7); Neutrophils % (A) 74 %; Poikilocytosis Slight; RBC 2.96 m/uL (3.80-5.40); RDW 15.6 % (11.5-15.5); WBC 12.9 k/uL (3.8-10.6); WBC (Perox) 13.49
[2016-12-01 08:09] LABS: ALT 35 U/L (9-52); AST 70 U/L (14-36); Alkaline Phosphatase 61 U/L (38-126); Anion Gap 10 mmol/L; Blood Urea Nitrogen 40 mg/dL (7-17); Calcium 8.6 mg/dL (8.4-10.2); Carbon Dioxide 24 mmol/L (22-30); Chloride 102 mmol/L (98-107); Glucose 182 mg/dL (74-99); Non-African American GFR(MDRD) 59 (>60 ml/min/1.73 sqM); Sodium 136 mmol/L (137-145); Total Bilirubin 0.6 mg/dL (0.2-1.3); Total Protein 6.7 g/dL (6.3-8.2)
[2016-12-01 08:11] LABS: Potassium 5.5 mmol/L (3.5-5.1)
[2016-12-01] MEDS: ENOXAPARIN 40 MG/0.4 ML SYRINGE SQ SCH (09:06)
[2016-12-01] MEDS: FUROSEMIDE 40 MG TAB PO SCH ×2 (09:06→15:52)
[2016-12-01] MEDS: FENOFIBRATE 160 MG TAB PO SCH (09:06)
[2016-12-01] MEDS: amLODIPine 5 MG TAB PO SCH (09:07)
[2016-12-01] MEDS: LISINOPRIL 10 MG TAB PO SCH (09:07)
[2016-12-01] MEDS: TICAGRELOR 90 MG TAB PO SCH ×2 (09:07→21:15)
[2016-12-01] MEDS: HYDROGEN PEROXIDE TOPICAL SCH ×2 (09:07)
[2016-12-01] MEDS: carBAMazepine 200 MG TAB PO SCH ×3 (09:08→21:10)
[2016-12-01] MEDS: POTASSIUM CHLORIDE ER 20 MEQ TAB.ER PO SCH ×2 (09:08→21:10)
[2016-12-01] MEDS: FAMOTIDINE 20 MG TAB PO SCH ×2 (09:08→21:10)
[2016-12-01] MEDS: SULFAMETHOX-TMP 800-160MG 1 EACH TAB PO SCH (09:08)
[2016-12-01] MEDS: ASPIRIN 81 MG CHEW PO SCH (09:08)
[2016-12-01] MEDS ORDERED: IV VANCOMYCIN PER PHARMACY 1 EACH MISC MISCELLANE PRN (10:54)
--- NOTE | 2016-12-01 11:12 | FL ---
EXAMINATION TYPE: FL barium swallow w video DATE OF EXAM: 12/01/2016 11:02 AM COMPARISON: NONE HISTORY: CVA difficulty swallowing TECHNIQUE: Fluoroscopy. FINDINGS: Fluoroscopic guidance was provided for the procedure performed in conjunction with the [facility] pathology department. Please see complete report forthcoming from the Speech Pathology departmen t. Various consistencies from thin liquid to solids were administered. Aspiration was evident with nectar thick liquids. Thin liquids are not utilized. Source pooling within the vallecula. There is marked hesitancy of bolus formation and propulsion into the esophagus. IMPRESSION: 1. Aspiration with nectar thick liquids. Thicker consistencies were able be swallowed with hesitancy without aspiration or penetration.
[2016-12-01 11:49] LABS: Glucose,Whole Blood 126 mg/dL (75-99)
[2016-12-01] MEDS ORDERED: VANCOMYCIN 1,000 MG in SODIUM CHLORIDE 0.9% 250 ML IVPB ONE (12:00)
[2016-12-01] MEDS ORDERED: LEVOFLOXACIN 250 MG TAB PO SCH (15:00)
[2016-12-01] MEDS: COLLAGENASE 250 UNIT/GM OINTMENT 30 GM TUBE TOPICAL SCH (15:50)
[2016-12-01 17:19] LABS: Glucose,Whole Blood 188 mg/dL (75-99)
--- NOTE | 2016-12-01 17:20 | CONS ---
DATE OF CONSULTATION: 12/01/2016 REASON FOR CONSULTATION: Right foot wound with methicillin-resistant Staphylococcus aureus and infection and antibiotic recommendation. HISTORY OF PRESENT ILLNESS: The patient is a 66-year-old female who was transferred to [facility] on 11/24/2016 from [facility] for evaluation of possible seizures, mental status and urinary tract infection. Since then the patient has been at this facility and is being monitored and treated by multiple consultants. The patient recently did have a right transmetatarsal amputation done at an outside facility. Patient does now have an open wound with some slough tissue at the base. The patient did have a cultures obtained which is now showing MRSA. She has been started on Bactrim base. I was asked to see the patient for further recommendation regarding antibiotic therapy. The patient is currently nonverbal and is unable to tell me when exactly she did have transmetatarsal amputation done. Local wound care remains to be peroxide soaked dressing. Patient was unable to tell me if she has been having any pain of the foot or any drainage from which no nausea, vomiting or any diarrhea. Overall history remains to be limited. REVIEW OF SYSTEMS: Could not be reliably obtained with positive points as mentioned in the HPI. Past medical history of hypertension, diabetes mellitus, CVA, TIA, atrial fibrillation, DVT, COPD. PAST SURGICAL HISTORY: Transmetatarsal amputation of the right foot. SOCIAL HISTORY: The patient is currently an every day smoker. No drinking or drug use. FAMILY HISTORY: No pertinent findings. ALLERGIES: No known allergies. Medications currently include the patient is on DuoNeb, Norvasc, aspirin, Tegretol, Coreg, Lovenox, Pepcid, Fenofibrate, Lasix, hydrogen peroxide with a topical , Levemir, Humalog, levofloxacin, K-Dur, Hytrin. On examination, blood pressure is 96/54 with a pulse of 77, temperature 97.6. She is 98% on room air. General description is an elderly female lying in bed in no distress. HEENT EXAMINATION: Slightly pallor. No scleral icterus. Oral mucosa membrane mostly dry. NECK: Trachea is central. No thyromegaly. LUNGS: Unlabored breathing. Clear to auscultation anteriorly. No wheeze or crackle. HEART: S1, S2 regular rate and rhythm. ABDOMEN: Soft, no tenderness. EXTREMITIES: No edema of feet. Examination of the right foot wound has evidence of the transmetatarsal amputation. Wound has soft tissue of the base with very minimal erythema. No significant foul smelling drainage. SKIN: No rash or mass palpable. NEUROLOGICAL: The patient is awake and alert. Orientation cannot be determined because of being nonverbal. LABS: Wound culture with MRSA done on the , blood pressure on admission as well as urine culture on admission has been negative. Hemoglobin is 8.2, white count 12.9, BUN of 40, creatinine 0.95, potassium was 5.5. Liver enzymes were normal. Urine significantly positive on admission though the culture is negative. DIAGNOSTIC IMPRESSION AND PLAN: Patient with right foot wound as there is opening of the surgical incision from the transmetatarsal amputation of the right foot. Not sure exactly when the patient did have surgery done. Wound now did have some slough tissue and minimal surrounding erythema and cultures positive for methicillin-resistant Staphylococcus aureus. PLAN: 1. Discontinue the Bactrim DS. 2. Start the patient vancomycin pharmacy to dose with a target of 15 and change local wound care to the [facility]. 3. Await angiogram to see the circulation of the foot and may benefit from further debridement. 4. Will follow up on the clinical condition and cultures to further adjust the medication if needed. Thank you for this consultation. Will follow this patient along with you. ELIAS
[2016-12-01 20:18] LABS: Glucose,Whole Blood 432 mg/dL (75-99)
[2016-12-01] MEDS: TERAZOSIN 2 MG CAP PO SCH (21:10)
[2016-12-01] MEDS: DEXTROSE 5%-0.2% NACL 1,000 ML IV SCH (21:16)
[2016-12-02] MEDS: VANCOMYCIN 1,000 MG in SODIUM CHLORIDE 0.9% 250 ML IVPB SCH ×2 (01:45→16:15)
[2016-12-02 01:48] LABS: Glucose,Whole Blood 297 mg/dL (75-99)
[2016-12-02 05:46] LABS: Glucose,Whole Blood 85 mg/dL (75-99)
[2016-12-02] MEDS: INSULIN LISPRO (humaLOG) 300 UNIT/3 ML VIAL SQ SCH ×4 (05:46→22:12)
[2016-12-02] MEDS: CARVEDILOL 12.5 MG TAB PO SCH ×2 (06:42→16:19)
[2016-12-02 06:43] LABS: Calcium 8.8 mg/dL (8.4-10.2); Potassium 5.2 mmol/L (3.5-5.1); Total Bilirubin 0.3 mg/dL (0.2-1.3); Total Protein 6.3 g/dL (6.3-8.2)
[2016-12-02] MEDS ORDERED: LIDOCAINE 2% INJ 20 MG/ML SQ ONE (09:37)
[2016-12-02] MEDS: ALBUTEROL NEBULIZED 2.5 MG/3 ML INHALATION SCH ×4 (09:38→20:45)
[2016-12-02] MEDS ORDERED: SODIUM CHLORIDE 0.9% 1,000 ML IV ONE (09:53)
[2016-12-02] MEDS ORDERED: IODIXANOL 320 MG/ML 100 ML INTRAARTER ONE (09:56)
[2016-12-02] MEDS ORDERED: SODIUM CHLORIDE 0.9% 1,000 ML IV SCH (10:15)
--- NOTE | 2016-12-02 10:32 | PTCA ---
DATE OF SERVICE: 12/02/2016 PERFORMING PHYSICIAN: Ronak Carney, Hand [employer]. PROCEDURE PERFORMED: 1. Abdominal aortogram. 2. Bilateral lower extremity runoff. INDICATION: This is a pleasant 66-year-old female patient who has critical limb ischemia of both feet. She was seen and evaluated by Dr. Keith who recommended proceeding with a peripheral angiogram. APPROACH: Right common femoral artery. COMPLICATION: None. LEVEL OF SEDATION: Moderate. PROCEDURE DESCRIPTION: After obtaining an informed consent, the patient was brought to the [facility]. The right common femoral artery was cannulated using micropuncture technique. Micropuncture wire passed easily. Then I placed a 5 Setswana sheath in the right common femoral artery, but subsequently, I did an abdominal aortogram and bilateral extremity runoff using 5 Setswana pigtail catheter which was initially placed at the level of the renal arteries, then it was pulled into above the bifurcation of the aorta to right and left common iliac arteries. The procedure was completed without any complication. SELECTIVE PERIPHERAL ANGIOGRAM: 1. The abdominal aorta appeared to have bifurcated into the right and left common iliac arteries. 2. COMMON ILIAC ARTERIES: The right and left common iliac artery appeared to have mild disease only. 3. INTERNAL ILIAC ARTERIES: The right and left internal iliac arteries are patent. 4. EXTERNAL ILIAC ARTERIES: The right and left external iliac arteries are normal. 5. COMMON FEMORAL ARTERIES: The right and left common femoral arteries are angiographically normal. 6. PROFUNDA: The right and left profunda are patent. 7. SFA: The ostial right SFA appeared to have a lesion in the range of 70%. The SFA in the proximal and midportion is stented and the stent is patent. The left SFA has a long lesion, appeared to be in the range of 70% to 80%. 8. POPLITEAL: The right popliteal is occluded and reconstitutes by the CBD trunk. The left popliteal has mild disease only. 9. BELOW THE KNEE: There are 2 vessel-runoff below the knee with anterior tibial and peroneal. CONCLUSION: 1. Patent stent in the right superficial femoral artery. 2. Severe disease involving the left superficial femoral artery. POSTPROCEDURE MANAGEMENT: 1. Maximize medical treatment at this point. 2. Follow up with the patient.
[2016-12-02] MEDS ORDERED: DEXTROSE 50%-WATER 50 ML SYRINGE IVP STA (10:44)
[2016-12-02 10:50] LABS: Glucose,Whole Blood 29 mg/dL (75-99)
[2016-12-02] MEDS ORDERED: FUROSEMIDE 10 MG/ML 4 ML VIAL IV STA (11:16)
--- NOTE | 2016-12-02 11:27 | XR ---
EXAMINATION TYPE: XR chest 1V DATE OF EXAM: 12/02/2016 11:15 AM COMPARISON: 11/25/2016 HISTORY: 66 year-old female altered mental status, wet lung sounds TECHNIQUE: Single frontal view of the chest is obtained. FINDINGS: Heart is upper limits of normal in size. Aorta within normal limits. There is mild interstitial opaci ties and some hazy density at the right upper lobe. No significant pleural effusion seen. IMPRESSION: Interstitial prominence and some developing opacity in the right upper lobe. Correlate for pulmonary vascular congestion/early interstitial edema a possible etiology. Early pneumonia not excluded. Follo w-up may be helpful.
[2016-12-02] MEDS: FAMOTIDINE 20 MG TAB PO SCH (11:43)
[2016-12-02] MEDS: FENOFIBRATE 160 MG TAB PO SCH (11:43)
[2016-12-02] MEDS: FUROSEMIDE 40 MG TAB PO SCH ×2 (11:43→16:18)
[2016-12-02] MEDS: carBAMazepine 200 MG TAB PO SCH ×3 (11:43→22:02)
[2016-12-02] MEDS: LISINOPRIL 10 MG TAB PO SCH ×2 (11:44→11:50)
[2016-12-02] MEDS: amLODIPine 5 MG TAB PO SCH (11:44)
[2016-12-02] MEDS: POTASSIUM CHLORIDE ER 20 MEQ TAB.ER PO SCH ×2 (11:44→22:02)
[2016-12-02] MEDS: TICAGRELOR 90 MG TAB PO SCH ×2 (11:44→22:02)
[2016-12-02] MEDS: ASPIRIN 81 MG CHEW PO SCH (11:44)
[2016-12-02] MEDS: ENOXAPARIN 40 MG/0.4 ML SYRINGE SQ SCH (11:45)
[2016-12-02] MEDS: COLLAGENASE 250 UNIT/GM OINTMENT 30 GM TUBE TOPICAL SCH (11:46)
[2016-12-02] MEDS: HYDROGEN PEROXIDE TOPICAL SCH ×2 (11:48)
[2016-12-02 11:55] LABS: Glucose,Whole Blood 211 mg/dL (75-99)
[2016-12-02 11:55] LABS: Glucose,Whole Blood 163 mg/dL (75-99)
--- NOTE | 2016-12-02 11:56 | IR ---
Fluoroscopy HISTORY: Pain 90 seconds fluoroscopy time supplied to the referring clinician. 133 intraoperative C-arm images doc ument the procedure. See dictated report from cardiology.
--- NOTE | 2016-12-02 13:32 | P.ARTDOP ---
Arterial Doppler LOWER EXTREMITY ARTERIAL DOPPLER: DATE OF SERVICE: 11/27/2016 Reason for study: Breakdown transmetatarsal amputation stump. Doppler waveforms: Multiphasic throughout on the left. Multiphasic to the popliteal on the right. Atypical below.. Pulse volume recording: Blunted distally on the right. Pressure gradients: Across the knee on the right.. Ankle-brachial indices: Greater than 1 on the right and one on the left.. Toe pressures: [] on the right, [] on the left Impression: Suspect moderate right sided disease at the popliteal level. Ankle pressures probably falsely elevated. Clinical correlation recommended..
--- NOTE | 2016-12-02 13:50 | PN ---
DATE OF SERVICE: 12/01/2016 CHIEF COMPLAINT: CVA. HISTORY OF PRESENT ILLNESS: This lady is improving slightly in terms of her right side weakness and speech. There is still concern about the infection and necrosis of the right distal foot amputation and blood sugars are still erratic. PHYSICAL EXAM: Chest is clear and cardiac exam is unremarkable and the abdomen is soft, nontender and the extremities are normal. IMPRESSION: 1. Left-sided cerebrovascular accident. 2. Infected and gangrenous distal right foot amputation. 3. Poorly controlled diabetes mellitus. PLAN: 1. Continue efforts to control diabetes. 2. Continue to work on discharge planning.
--- NOTE | 2016-12-02 14:20 | PN ---
DATE OF SERVICE: 12/02/2016 CHIEF COMPLAINT: CVA and diabetes. HISTORY OF PRESENT ILLNESS: This lady is undergoing some vascular re-evaluation of the right lower extremity. PHYSICAL EXAM: Chest is clear. Cardiac exam is normal and the abdomen is soft, nontender. IMPRESSION: 1. Cerebrovascular accident. 2. Infected and gangrenous right distal foot amputation. PLAN: Vascular evaluation of the right lower extremity.
--- NOTE | 2016-12-02 15:14 | P.PN ---
Subjective Principal diagnosis: A 66-year-old female being seen on rounds. Patient had an episode event around noon today in which the A team needed to be activated. Patient had just returned from a procedure and was given 50 units of Lantus at bedtime the night before. Nursing reported that the blood sugar was 29. Patient was given an amp of dextrose. Additionally patient was noted to be hypotensive is given a fluid bolus. Sats on 4 L were 88%. 18 stabilized patient patient was given 40 of IV Lasix and a recheck of the blood sugar came back at 163. Patient was arousable to verbal stimuli. Patient is being seen this afternoon is sitting up in bed is awake but does dozy off the blood pressure reading 142/63 heart rate in the 80s and the temp is 96.8 the Levemir dose is been decreased down to 40 at bedtime Patient did undergo a lower extremity arterial Doppler study November 27. Today on December 02 per sharebroker patient did undergo an abdominal aortogram with bilateral lower extremity runoff moderate sedation was used. There was a patent stent to the right superficial femoral artery. Severe disease involving the left superior femoral artery recommending maximizing medical treatment Objective - Vital Signs Vital signs: Vital Signs Temp 96.8 F L 12/02/16 13:14 Pulse 81 12/02/16 13:14 Resp 18 12/02/16 13:14 BP 142/63 12/02/16 13:14 Pulse Ox 100 12/02/16 13:14 Intake & Output 12/01/16 12/02/16 12/02/16 18:59 06:59 18:59 Intake Total 760 310 Output Total 775 1850 825 Balance - - Weight 58 kg 57.5 kg Intake: IV 110 70 Dextrose 5%-0.2% NaCl 1, 110 20 000 ml @ 10 mls/hr IV . Q24H [facility] Rx#:[id number] Intake, IV Titration 350 Amount Levofloxacin 500Mg-D5w 100 Pmx 500 mg In Dextrose/ Water 1 100ml.bag @ 100 mls/hr IVPB Q24H [facility] Rx#: [id number] Vancomycin 1,000 mg In 250 Sodium Chloride 0.9% 250 ml @ 125 mls/hr IVPB Q16H [facility] Rx#:[id number] Oral 300 240 Output: Urine 775 1850 825 Uretheral (Silva) 775 400 825 Other: Voiding Method Indwelling Catheter Indwelling Catheter Indwelling Catheter # Voids 0 - Exam Physical exam 66-year-old female just returned from procedure after receiving moderate amount sedation is arousable to verbal stimuli will follow simple commands Lungs essentially clear adequate air movement Heart S1-S2 audible plus murmur noted Abdomen soft nontender indwelling Silva catheter in place Extremities dressing to the right foot dry will move bilateral extremities to simple command grass weaker on the right than the left - Labs CBC & Chem 7: 12/01/16 05:53 12/02/16 11:10 Labs: Abnormal Lab Results - Last 24 Hours (Table) 12/01/16 12/01/16 12/02/16 Range/Units 17:02 20:17 01:46 Potassium (3.5-5.1) mmol/L Carbon Dioxide (22-30) mmol/L BUN (7-17) mg/dL Creatinine (0.52-1.04) mg/dL Glucose (74-99) mg/dL POC Glucose (mg/dL) 188 H 432 H 297 H (75-99) mg/dL AST (14-36) U/L Albumin (3.5-5.0) g/dL 12/02/16 12/02/16 12/02/16 Range/Units 05:24 10:42 10:59 Potassium 5.2 H (3.5-5.1) mmol/L Carbon Dioxide 21 L (22-30) mmol/L BUN 47 H (7-17) mg/dL Creatinine 1.29 H (0.52-1.04) mg/dL Glucose 70 L (74-99) mg/dL POC Glucose (mg/dL) 29 L 211 H (75-99) mg/dL AST 37 H (14-36) U/L Albumin 3.0 L (3.5-5.0) g/dL 12/02/16 12/02/16 Range/Units 11:10 11:40 Potassium (3.5-5.1) mmol/L Carbon Dioxide (22-30) mmol/L BUN (7-17) mg/dL Creatinine (0.52-1.04) mg/dL Glucose 128 H (74-99) mg/dL POC Glucose (mg/dL) 163 H (75-99) mg/dL AST (14-36) U/L Albumin (3.5-5.0) g/dL Microbiology - Last 24 Hours (Table) 11/27/16 05:50 Anaerobic Culture - Final Foot - Right Assessment and Plan Plan: Impression Present on admission acute metabolic encephalopathy suspect due to subacute infarcts nasal cannula and on the left CAT scan of the brain evidence of chronic small vessel ischemic changes suspect dementia with no behavior changes Present on admission open wound right foot with a positive wound culture for MRSA History of hypertension Type 2 diabetes insulin requiring controlled hemoglobin A1c 6.8 Peripheral artery disease with a prior transmetatarsal amputation of the right foot angioplasty of the distal right SFA Status post 27 of November lower extremity arterial Doppler showing moderate right side disease at the popliteal level Status post December 02 abdominal aortogram bilateral lower extremity runoff showing patent stent in the right superficial femoral artery with severe disease involving the left superficial femoral artery Bilateral critical limb ischemia lower extremity Postprocedure acute hypoxic respiratory failure hypotensive with acute toxic encephalopathy suspect due to moderate sedation for planned procedure resolved Acute symptomatic hypoglycemic episode resolved suspect due to poor caloric intake Plan Continue the recommendations from CONSULTING physicians reviewed and recognized appreciated Antibiotics per infectious disease IV vancomycin DVT and GI prophylaxis Further recommendations pending will follow PT OT eval Decrease the insulin Levemir to 40 units at bedtime with [place] corporate legal manager pursuing the discharge plan patient will need to be transferred to [facility] facility when medically stable The above dictated assessment and findings were discussed with dr mc Rolon and the plan of care have been dictated as directed. Maureen Tucker nurse practitioner acting as a scribe for dr bentley
[2016-12-02 16:53] LABS: Glucose,Whole Blood 208 mg/dL (75-99)
[2016-12-02] MEDS: LEVOFLOXACIN 500 MG TAB PO SCH (18:18)
[2016-12-02 20:24] LABS: Glucose,Whole Blood 473 mg/dL (75-99)
--- NOTE | 2016-12-02 20:29 | PN ---
DATE OF SERVICE: 12/02/2016 Reason for follow-up: Right foot MRSA infection. INTERVAL HISTORY: The patient is afebrile. The patient is status post angiogram up to the legs, post procedure, the patient been slightly lethargic and A-Team was called in. The patient was hemodynamically stable. Slightly picking up. No nausea, vomiting or any diarrhea. On examination, blood pressure 142/63 with a pulse of 81, temperature 96.8. She is 100% on 3 L. GENERAL: Elderly female, lying in bed in no distress. RESPIRATORY SYSTEM: Unlabored breathing. Clear to auscultation anteriorly. HEART: S1, S2 regular rate and rhythm. ABDOMEN: Soft, no tenderness. Right foot is currently dressed up, no obvious drainage on the dressing. LABS: No new labs have been obtained today. DIAGNOSTIC IMPRESSION AND PLAN: Patient with right foot wound infection with Methicillin-resistant Staph aureus. The patient will continue local wound care with Santyl, IV antibiotics vancomycin. Wait for the surgical debridement intervention by vascular surgery. Continue supportive care. ELIAS
[2016-12-02] MEDS: TERAZOSIN 2 MG CAP PO SCH (22:01)
[2016-12-02] MEDS: DEXTROSE 5%-0.2% NACL 1,000 ML IV SCH (22:11)
[2016-12-02] MEDS: INSULIN DETEMIR 100 UNIT/ML 10 ML VIAL SQ SCH (22:13)
[2016-12-03 02:04] LABS: Glucose,Whole Blood 472 mg/dL (75-99)
[2016-12-03 04:49] LABS: Glucose,Whole Blood 376 mg/dL (75-99)
[2016-12-03 05:15] LABS: Glucose,Whole Blood 329 mg/dL (75-99)
[2016-12-03 07:00] LABS: Anisocytosis Slight; Basophils # (A) 0.1 k/uL (0-0.2); Basophils % (A) 1 %; CH 29.4; CHCM 30.6; Eosinophils # (A) 0.2 k/uL (0-0.7); Eosinophils % (A) 2 %; HCT 28.9 % (34.0-46.0); HDW 3.56; HGB 8.6 gm/dL (11.4-16.0); Hypochromasia Marked; Luc # (Auto) 0.08; Luc % (Auto) 1; Lymphocytes # (A) 1.1 k/uL (1.0-4.8); Lymphocytes % (A) 8 %; MCH 28.5 pg (25.0-35.0); MCHC 29.7 g/dL (31.0-37.0); MCV 95.8 fL (80.0-100.0); Mean Platelet Volume 7.8; Monocytes # (A) 0.7 k/uL (0-1.0); Monocytes % (A) 5 %; Neutrophils # (A) 11.7 k/uL (1.3-7.7); Neutrophils % (A) 84 %; Poikilocytosis Slight; RBC 3.01 m/uL (3.80-5.40); RDW 16.1 % (11.5-15.5); WBC 13.8 k/uL (3.8-10.6); WBC (Perox) 14.37
[2016-12-03] MEDS ORDERED: VANCOMYCIN TROUGH DUE 1 EACH MISC MISCELLANE ONE (07:00)
[2016-12-03] MEDS: INSULIN LISPRO (humaLOG) 300 UNIT/3 ML VIAL SQ SCH ×3 (07:19→17:38)
[2016-12-03] MEDS: CARVEDILOL 12.5 MG TAB PO SCH ×2 (07:20→16:46)
[2016-12-03 07:27] LABS: ALT 32 U/L (9-52); AST 35 U/L (14-36); Alkaline Phosphatase 88 U/L (38-126); Anion Gap 14 mmol/L; Blood Urea Nitrogen 41 mg/dL (7-17); Calcium 8.9 mg/dL (8.4-10.2); Carbon Dioxide 20 mmol/L (22-30); Chloride 106 mmol/L (98-107); Glucose 262 mg/dL (74-99); Non-African American GFR(MDRD) 52 (>60 ml/min/1.73 sqM); Potassium 5.2 mmol/L (3.5-5.1); Sodium 140 mmol/L (137-145); Total Bilirubin 0.4 mg/dL (0.2-1.3); Total Protein 6.9 g/dL (6.3-8.2)
[2016-12-03] MEDS: ALBUTEROL NEBULIZED 2.5 MG/3 ML INHALATION SCH ×4 (07:51→20:26)
[2016-12-03] MEDS: VANCOMYCIN 1,000 MG in SODIUM CHLORIDE 0.9% 250 ML IVPB SCH ×2 (08:27→23:36)
[2016-12-03] MEDS: ENOXAPARIN 40 MG/0.4 ML SYRINGE SQ SCH (08:27)
[2016-12-03] MEDS: POTASSIUM CHLORIDE ER 20 MEQ TAB.ER PO SCH ×2 (08:28→22:23)
[2016-12-03] MEDS: COLLAGENASE 250 UNIT/GM OINTMENT 30 GM TUBE TOPICAL SCH (08:28)
[2016-12-03] MEDS: HYDROGEN PEROXIDE TOPICAL SCH ×2 (08:28)
[2016-12-03] MEDS: FENOFIBRATE 160 MG TAB PO SCH (08:28)
[2016-12-03] MEDS: TICAGRELOR 90 MG TAB PO SCH ×2 (08:28→22:23)
[2016-12-03] MEDS: FAMOTIDINE 20 MG TAB PO SCH (08:29)
[2016-12-03] MEDS: amLODIPine 5 MG TAB PO SCH ×2 (08:29→09:12)
[2016-12-03] MEDS: carBAMazepine 200 MG TAB PO SCH ×3 (08:29→22:23)
[2016-12-03] MEDS: LISINOPRIL 10 MG TAB PO SCH ×2 (08:29→09:11)
[2016-12-03] MEDS: FUROSEMIDE 40 MG TAB PO SCH ×2 (08:29→15:54)
[2016-12-03] MEDS: ASPIRIN 81 MG CHEW PO SCH (08:29)
[2016-12-03 09:04] LABS: Glucose,Whole Blood 306 mg/dL (75-99)
--- NOTE | 2016-12-03 10:58 | P.PN ---
Subjective 66-year-old being seen with the attending on rounds. Patient is more awake more alert this morning did review the blood sugars. This morning blood sugars 306 reviewing the blood sugars records indicate that the patient around 6 AM daily blood sugars drop into the 80s with DC the sliding scale will increase the Levemir to 50 at bedtime and add Humalog before meals and monitor the response noted the blood pressure this morning was documented 79/45 at 8 AM Asians antihypertensive meds have been held and adjusted Norvasc is been held by cardiology and lisinopril the discharge plan is in progress. The plan is to transfer to [facility] within the next 48 hours if blood sugars stabilize There is no family at the bedside.Patient did undergo a lower extremity arterial Doppler study November 27. on December 02 per change house attendant patient did undergo an abdominal aortogram with bilateral lower extremity runoff moderate sedation was used. There was a patent stent to the right superficial femoral artery. Severe disease involving the left superior femoral artery recommending maximizing medical treatment Objective - Vital Signs Vital signs: Vital Signs Temp 96.6 F L 12/03/16 08:00 Pulse 92 12/03/16 08:02 Resp 18 12/03/16 08:00 BP 79/45 12/03/16 08:00 Pulse Ox 98 12/03/16 08:00 Intake & Output 12/02/16 12/03/16 12/03/16 18:59 06:59 18:59 Intake Total 1300 510 Output Total 1650 2625 625 Balance -350 -2625 -115 Weight 57 kg Intake: IV 70 20 Dextrose 5%-0.2% NaCl 1, 20 20 000 ml @ 10 mls/hr IV . Q24H [facility] Rx#:[id number] Intake, IV Titration 750 250 Amount Sodium Chloride 0.9% 1, 500 000 ml @ 100 mls/hr IV . Q10H [facility] Rx#:[id number] Vancomycin 1,000 mg In 250 250 Sodium Chloride 0.9% 250 ml @ 125 mls/hr IVPB Q16H [facility] Rx#:[id number] Oral 480 240 Output: Urine 1650 2625 625 Uretheral (Silva) 1650 425 175 Other: Voiding Method Indwelling Catheter Indwelling Catheter Indwelling Catheter # Voids 0 - Exam Physical exam 66-year-old female sitting up in bed awake and alert Lungs essentially clear adequate air movement Heart S1-S2 audible plus murmur noted Abdomen soft nontender indwelling Silva catheter in place Extremities dressing to the right foot dry will move bilateral extremities to simple command grass weaker on the right than the left - Labs CBC & Chem 7: 12/03/16 06:25 12/03/16 06:25 Labs: Abnormal Lab Results - Last 24 Hours (Table) 12/02/16 12/02/16 12/02/16 Range/Units 10:42 10:59 11:10 WBC (3.8-10.6) k/uL RBC (3.80-5.40) m/uL Hgb (11.4-16.0) gm/dL Hct (34.0-46.0) % MCHC (31.0-37.0) g/dL RDW (11.5-15.5) % Plt Count (150-450) k/uL Neutrophils # (1.3-7.7) k/uL Potassium (3.5-5.1) mmol/L Carbon Dioxide (22-30) mmol/L BUN (7-17) mg/dL Creatinine (0.52-1.04) mg/dL Glucose 128 H (74-99) mg/dL POC Glucose (mg/dL) 29 L 211 H (75-99) mg/dL Albumin (3.5-5.0) g/dL 12/02/16 12/02/16 12/02/16 Range/Units 11:40 16:49 20:22 WBC (3.8-10.6) k/uL RBC (3.80-5.40) m/uL Hgb (11.4-16.0) gm/dL Hct (34.0-46.0) % MCHC (31.0-37.0) g/dL RDW (11.5-15.5) % Plt Count (150-450) k/uL Neutrophils # (1.3-7.7) k/uL Potassium (3.5-5.1) mmol/L Carbon Dioxide (22-30) mmol/L BUN (7-17) mg/dL Creatinine (0.52-1.04) mg/dL Glucose (74-99) mg/dL POC Glucose (mg/dL) 163 H 208 H 473 H (75-99) mg/dL Albumin (3.5-5.0) g/dL 12/03/16 12/03/16 12/03/16 Range/Units 02:01 04:45 05:12 WBC (3.8-10.6) k/uL RBC (3.80-5.40) m/uL Hgb (11.4-16.0) gm/dL Hct (34.0-46.0) % MCHC (31.0-37.0) g/dL RDW (11.5-15.5) % Plt Count (150-450) k/uL Neutrophils # (1.3-7.7) k/uL Potassium (3.5-5.1) mmol/L Carbon Dioxide (22-30) mmol/L BUN (7-17) mg/dL Creatinine (0.52-1.04) mg/dL Glucose (74-99) mg/dL POC Glucose (mg/dL) 472 H 376 H 329 H (75-99) mg/dL Albumin (3.5-5.0) g/dL 12/03/16 12/03/16 12/03/16 Range/Units 06:25 06:25 08:59 WBC 13.8 H (3.8-10.6) k/uL RBC 3.01 L (3.80-5.40) m/uL Hgb 8.6 L (11.4-16.0) gm/dL Hct 28.9 L (34.0-46.0) % MCHC 29.7 L (31.0-37.0) g/dL RDW 16.1 H (11.5-15.5) % Plt Count 640 H (150-450) k/uL Neutrophils # 11.7 H (1.3-7.7) k/uL Potassium 5.2 H (3.5-5.1) mmol/L Carbon Dioxide 20 L (22-30) mmol/L BUN 41 H (7-17) mg/dL Creatinine 1.05 H (0.52-1.04) mg/dL Glucose 262 H (74-99) mg/dL POC Glucose (mg/dL) 306 H (75-99) mg/dL Albumin 3.2 L (3.5-5.0) g/dL Assessment and Plan Plan: Impression Present on admission acute metabolic encephalopathy suspect due to subacute infarcts nasal cannula and on the left CAT scan of the brain evidence of chronic small vessel ischemic changes suspect dementia with no behavior changes Present on admission open wound right foot with a positive wound culture for MRSA History of hypertension Type 2 diabetes insulin requiring controlled hemoglobin A1c 6.8 Peripheral artery disease with a prior transmetatarsal amputation of the right foot angioplasty of the distal right SFA Status post 27 of November lower extremity arterial Doppler showing moderate right side disease at the popliteal level Status post December 02 abdominal aortogram bilateral lower extremity runoff showing patent stent in the right superficial femoral artery with severe disease involving the left superficial femoral artery Bilateral critical limb ischemia lower extremity Postprocedure acute hypoxic respiratory failure hypotensive with acute toxic encephalopathy suspect due to moderate sedation for planned procedure resolved Acute symptomatic hypoglycemic episode resolved suspect due to poor caloric intake Episodes of hypotension suspect due to hypertensive meds Episodes of hypoglycemia Plan Continue the recommendations from CONSULTING physicians reviewed and recognized appreciated Antibiotics per infectious disease IV vancomycin DVT and GI prophylaxis Further recommendations pending will follow PT OT eval Decrease the insulin Levemir to 40 units at bedtime with Humalog 6 units before meals manager diversity pursuing the discharge plan patient will need to be transferred to ECF facility when medically stable anticipate within the next 24 hours The above dictated assessment and findings were discussed with dr mc Rolon and the plan of care have been dictated as directed. Maureen Tucker nurse practitioner acting as a scribe for dr bentley
[2016-12-03 11:45] LABS: Glucose,Whole Blood 213 mg/dL (75-99)
[2016-12-03 15:11] VITALS: BMI 20.2
--- NOTE | 2016-12-03 15:14 | P.PN ---
Subjective Principal diagnosis: CVA This is a 66-year-old female who was admitted to the hospital with an acute CVA. Cardiology was initially asked to see the patient because of abnormal troponins. Patient's troponin was not consistent with acute coronary syndrome. An echocardiogram with Doppler study was performed which revealed normal left ventricular systolic function. Repeat CAT scan of the brain revealed subacute infarct in the basal ganglia on the left. Patient was seen and examined today, continues to be aphasic able to say a few words, able to move right arm and right leg. Currently on by mouth Lasix. Patient underwent aortogram with bilateral lower extremity runoff by Dr. Smith yesterday which revealed a patent stent in the right superficial femoral artery with severe disease involving the left superficial femoral artery. Currently we will continue the patient on maximal medical therapy. She will have a follow-up appointment with Dr. Carney in the office in one week. Objective - Vital Signs Vital signs: Vital Signs Temp 97.6 F 12/03/16 11:07 Pulse 88 12/03/16 11:38 Resp 16 12/03/16 11:08 BP 124/58 12/03/16 11:07 Pulse Ox 99 12/03/16 11:07 Intake & Output 12/02/16 12/03/16 12/03/16 18:59 06:59 18:59 Intake Total 1300 790 Output Total 1650 2625 625 Balance -350 -2625 165 Weight 57 kg 57 kg Intake: IV 70 20 Dextrose 5%-0.2% NaCl 1, 20 20 000 ml @ 10 mls/hr IV . Q24H [facility] Rx#:[id number] Intake, IV Titration 750 250 Amount Sodium Chloride 0.9% 1, 500 000 ml @ 100 mls/hr IV . Q10H [facility] Rx#:[id number] Vancomycin 1,000 mg In 250 250 Sodium Chloride 0.9% 250 ml @ 125 mls/hr IVPB Q16H [facility] Rx#:[id number] Oral 480 520 Output: Urine 1650 2625 625 Uretheral (Silva) 1650 425 175 Other: Voiding Method Indwelling Catheter Indwelling Catheter Indwelling Catheter # Voids 0 - Exam PHYSICAL EXAMINATION: HEENT: Head is atraumatic, normocephalic. Pupils equal, round. Neck is supple. There is no elevated jugular venous pressure. HEART EXAMINATION: Heart S1 and S2 systolic murmur is heard. CHEST EXAMINATION: Lungs are clear to auscultation and precussion. No chest wall tenderness is noted on palpation or with deep breathing. ABDOMEN: Soft, nontender. Bowel sounds are heard. No organomegaly noted. EXTREMITIES: 1+ peripheral pulses with no evidence of peripheral edema and no calf tenderness noted. Dressing in place to the right foot. NEUROLOGIC [patient is awake, positive expressive aphasia, mild right-sided arm and leg weakness. - Labs CBC & Chem 7: 12/03/16 06:25 12/03/16 06:25 Labs: Abnormal Lab Results - Last 24 Hours (Table) 12/02/16 12/02/16 12/03/16 Range/Units 16:49 20:22 02:01 WBC (3.8-10.6) k/uL RBC (3.80-5.40) m/uL Hgb (11.4-16.0) gm/dL Hct (34.0-46.0) % MCHC (31.0-37.0) g/dL RDW (11.5-15.5) % Plt Count (150-450) k/uL Neutrophils # (1.3-7.7) k/uL Potassium (3.5-5.1) mmol/L Carbon Dioxide (22-30) mmol/L BUN (7-17) mg/dL Creatinine (0.52-1.04) mg/dL Glucose (74-99) mg/dL POC Glucose (mg/dL) 208 H 473 H 472 H (75-99) mg/dL Albumin (3.5-5.0) g/dL 12/03/16 12/03/16 12/03/16 Range/Units 04:45 05:12 06:25 WBC (3.8-10.6) k/uL RBC (3.80-5.40) m/uL Hgb (11.4-16.0) gm/dL Hct (34.0-46.0) % MCHC (31.0-37.0) g/dL RDW (11.5-15.5) % Plt Count (150-450) k/uL Neutrophils # (1.3-7.7) k/uL Potassium 5.2 H (3.5-5.1) mmol/L Carbon Dioxide 20 L (22-30) mmol/L BUN 41 H (7-17) mg/dL Creatinine 1.05 H (0.52-1.04) mg/dL Glucose 262 H (74-99) mg/dL POC Glucose (mg/dL) 376 H 329 H (75-99) mg/dL Albumin 3.2 L (3.5-5.0) g/dL 12/03/16 12/03/16 12/03/16 Range/Units 06:25 08:59 11:43 WBC 13.8 H (3.8-10.6) k/uL RBC 3.01 L (3.80-5.40) m/uL Hgb 8.6 L (11.4-16.0) gm/dL Hct 28.9 L (34.0-46.0) % MCHC 29.7 L (31.0-37.0) g/dL RDW 16.1 H (11.5-15.5) % Plt Count 640 H (150-450) k/uL Neutrophils # 11.7 H (1.3-7.7) k/uL Potassium (3.5-5.1) mmol/L Carbon Dioxide (22-30) mmol/L BUN (7-17) mg/dL Creatinine (0.52-1.04) mg/dL Glucose (74-99) mg/dL POC Glucose (mg/dL) 306 H 213 H (75-99) mg/dL Albumin (3.5-5.0) g/dL Assessment and Plan Plan: Assessment and plan #1 acute CVA, #2 hypertension #3 hyperlipidemia #4 diabetes #5 PAD with prior trans-metatarsal amputation of the right foot, angioplasty of the distal right SFA with stenting of the right popliteal #6 hypomagnesemia #7 mildly abnormal troponins, not consistent with acute coronary syndrome, could be secondary to acute CVA. 0.015, .017, 0.027. #8 coronary artery disease with prior right coronary artery drug-eluting stent placement #9 prior nicotine dependence #10 status post aortogram with runoff, which revealed a patent stent in the right superficial femoral artery and severe disease involving the left superficial femoral artery. Plan From cardiology's perspective, we'll continue current medications. Patient may be able to be discharged once cleared by primary. We will make her a follow-up appointment to see Dr. Smith in the office in one week. DNP note has been reviewed, I agree with a documented findings and plan of care. Patient was seen and examined.
[2016-12-03] MEDS: LEVOFLOXACIN 500 MG TAB PO SCH (15:55)
[2016-12-03 17:15] LABS: Glucose,Whole Blood 409 mg/dL (75-99)
[2016-12-03] MEDS ORDERED: ACETAMINOPHEN TAB 325 MG TAB PO PRN (20:13)
[2016-12-03] MEDS ORDERED: HYDROcodone/APAP 5-325MG 1 EACH TAB PO PRN (20:15)
--- NOTE | 2016-12-03 20:21 | PN ---
DATE OF SERVICE: 12/03/2016 REASON FOR FOLLOWUP: Right foot wound infection. INTERVAL HISTORY: The patient is afebrile. She is more awake and alert today. She is breathing comfortably. Denies having significant chest pain, cough or abdominal pain or any worsening pain in the right foot area. On examination, blood pressure is 139/59 with a pulse of 79, temperature 96.8. She is 99% on room air. General description is an elderly female up in the bed in no distress. RESPIRATORY SYSTEM: Unlabored breathing. Clear to auscultation anteriorly. HEART: S1, S2. Regular rhythm. ABDOMEN: Soft. No tenderness. Right foot wound is currently dressed. There is no obvious drainage. LABS: Hemoglobin 8.6, white count 13.8, BUN of 41, creatinine 1.05. DIAGNOSTIC IMPRESSION AND PLAN: Patient with a right foot wound with significant cellulitis; culture positive for methicillin-resistant Staphylococcus aureus. The patient will continue with vancomycin, Pharmacy to dose, with a target trough 15 in view of the significant deep wound. The patient likely will need a PICC line for outpatient antibiotic therapy. Continue local wound care with Santyl. Intervention per Vascular Surgery. Continue supportive care.
[2016-12-03 20:33] LABS: Glucose,Whole Blood 395 mg/dL (75-99)
[2016-12-03] MEDS: INSULIN DETEMIR 100 UNIT/ML 10 ML VIAL SQ SCH (22:22)
[2016-12-03] MEDS: TERAZOSIN 2 MG CAP PO SCH (22:23)
[2016-12-03] MEDS: DEXTROSE 5%-0.2% NACL 1,000 ML IV SCH (22:28)
[2016-12-04 06:02] LABS: Glucose,Whole Blood 60 mg/dL (75-99)
[2016-12-04 06:15] LABS: Glucose,Whole Blood 45 mg/dL (75-99)
[2016-12-04 06:44] LABS: Glucose,Whole Blood 102 mg/dL (75-99)
[2016-12-04] MEDS ORDERED: DEXTROSE 50%-WATER 50 ML SYRINGE IVP STA (06:46)
[2016-12-04] MEDS: INSULIN LISPRO (humaLOG) 300 UNIT/3 ML VIAL SQ SCH ×2 (06:56→17:28)
[2016-12-04] MEDS: CARVEDILOL 12.5 MG TAB PO SCH ×2 (07:01→16:26)
[2016-12-04] MEDS: LISINOPRIL 10 MG TAB PO SCH (08:26)
[2016-12-04] MEDS: ENOXAPARIN 40 MG/0.4 ML SYRINGE SQ SCH (08:26)
[2016-12-04] MEDS: ASPIRIN 81 MG CHEW PO SCH (08:26)
[2016-12-04] MEDS: POTASSIUM CHLORIDE ER 20 MEQ TAB.ER PO SCH ×3 (08:26→20:56)
[2016-12-04] MEDS: TICAGRELOR 90 MG TAB PO SCH ×2 (08:27→21:24)
[2016-12-04] MEDS: FUROSEMIDE 40 MG TAB PO SCH ×2 (08:27→16:26)
[2016-12-04] MEDS: FENOFIBRATE 160 MG TAB PO SCH (08:27)
[2016-12-04] MEDS: FAMOTIDINE 20 MG TAB PO SCH (08:27)
[2016-12-04] MEDS: carBAMazepine 200 MG TAB PO SCH ×3 (08:27→20:57)
[2016-12-04] MEDS: HYDROGEN PEROXIDE TOPICAL SCH ×2 (08:29)
[2016-12-04] MEDS: COLLAGENASE 250 UNIT/GM OINTMENT 30 GM TUBE TOPICAL SCH (08:30)
[2016-12-04] MEDS: ALBUTEROL NEBULIZED 2.5 MG/3 ML INHALATION SCH ×4 (08:41→19:43)
--- NOTE | 2016-12-04 09:01 | PN ---
DATE OF SERVICE: 12/03/2016 CHIEF COMPLAINT: Left-sided cerebrovascular accident, atrial fibrillation, cardiac murmur, uncontrolled diabetes and status post distal amputation of the right foot with secondary infection and gangrene. HISTORY OF PRESENT ILLNESS: This lady is still having difficulty. After she had a catheterization of the lower extremities yesterday, the A-Team was called because of hypotension and loss of consciousness. It was felt that this is due to a combination of hypoglycemia and dehydration. She responded to IV fluids. Blood sugars still remain high and her program will be altered. PHYSICAL EXAMINATION: She is a little bit more alert each day and speaking a little bit better. She is also moving her right side better. HEENT: Head, ears, eyes, nose, mouth, and throat are unchanged. CHEST: Clear. CARDIAC: Demonstrates her atrial fibrillation. ABDOMEN: Soft, nontender. IMPRESSION: 1. Left-sided cerebrovascular accident. 2. Atrial fibrillation. 3. Cardiac murmur. 4. Peripheral vascular occlusive disease. 5. Status post distal amputation of the right foot for infection and now secondary gangrene. PLAN: 1. Alter insulin management in hopes of getting better control of her blood sugars. 2. Continue with local wound care to the right foot. 3. Work on discharge planning.
--- NOTE | 2016-12-04 12:00 | P.PN ---
Subjective 66-year-old female seen on rounds this morning is increasing more awake and alert. Did note that there continues to be fluctuation with the patient experiencing hypoglycemic episodes in the meat clerk hours. The blood sugar readings were reviewed by the attending. Adjustment to the insulins were made. The Levemir will be increased to 50 units at bedtime Humalog 4 units at supper only and blood sugars will be checked with meals 2 hours after meals and at bedtime this will be reviewed by the attending further adjustments to the insulin will be made. Additionally the patient is to be scheduled today for a PICC line for outpatient antibiotic therapy wound care is being followed by infectious disease currently using Santyl. The patient's right foot wound significant cellulitis with a culture positive for MRSA Objective - Vital Signs Vital signs: Vital Signs Temp 97 F L 12/04/16 08:00 Pulse 80 12/04/16 08:56 Resp 17 12/04/16 08:00 BP 91/51 12/04/16 08:00 Pulse Ox 98 12/04/16 08:00 Intake & Output 12/03/16 12/04/16 12/04/16 18:59 06:59 18:59 Intake Total 2050 0 220 Output Total 1375 625 Balance 675 -625 220 Weight 57 kg 58.2 kg Intake: IV 20 Dextrose 5%-0.2% NaCl 1, 20 000 ml @ 10 mls/hr IV . Q24H [facility] Rx#:[id number] Intake, IV Titration 1150 Amount Sodium Chloride 0.9% 1, 900 000 ml As IV .[facility] Rx#:[id number] Vancomycin 1,000 mg In 250 Sodium Chloride 0.9% 250 ml @ 125 mls/hr IVPB Q16H [facility] Rx#:[id number] Oral 880 0 220 Output: Urine 1375 625 Uretheral (Silva) 625 Other: Voiding Method Indwelling Catheter Indwelling Catheter Indwelling Catheter - Exam Physical exam 66-year-old female sitting up in bed awake and alert Lungs essentially clear adequate air movement on room air Heart S1-S2 audible plus murmur noted Abdomen soft nontender indwelling Silva catheter in place no frequent stooling Extremities dressing to the right foot dry will move bilateral extremities to simple command grasp weaker on the right than the left - Labs CBC & Chem 7: 12/03/16 06:25 12/03/16 06:25 Labs: Abnormal Lab Results - Last 24 Hours (Table) 12/03/16 12/03/16 12/04/16 Range/Units 17:09 20:32 06:01 POC Glucose (mg/dL) 409 H 395 H 60 L (75-99) mg/dL 12/04/16 12/04/16 Range/Units 06:14 06:41 POC Glucose (mg/dL) 45 L 102 H (75-99) mg/dL Assessment and Plan Plan: Impression Present on admission acute metabolic encephalopathy suspect due to subacute infarcts nasal cannula and on the left CAT scan of the brain evidence of chronic small vessel ischemic changes suspect dementia with no behavior changes Present on admission open wound right foot with a positive wound culture for MRSA History of hypertension Type 2 diabetes insulin requiring uncontrolled hemoglobin A1c 6.8 Peripheral artery disease with a prior transmetatarsal amputation of the right foot angioplasty of the distal right SFA Status post 27 of November lower extremity arterial Doppler showing moderate right side disease at the popliteal level Status post December 02 abdominal aortogram bilateral lower extremity runoff showing patent stent in the right superficial femoral artery with severe disease involving the left superficial femoral artery Bilateral critical limb ischemia lower extremity Postprocedure acute hypoxic respiratory failure hypotensive with acute toxic encephalopathy suspect due to moderate sedation for planned procedure resolved Acute symptomatic hypoglycemic episode resolved suspect due to poor caloric intake Episodes of hypotension suspect due to hypertensive meds Persistent Episodes of hypoglycemia Plan Continue the recommendations from CONSULTING physicians reviewed and recognized appreciated Antibiotics per infectious disease IV vancomycin DVT and GI prophylaxis Further recommendations pending will follow PT OT eval Increase Levemir to 50 units at bedtime with Humalog 4 units before supper only PICC line to be inserted for IV outpatient antibiotics Blood sugars to be checked before meals 2 hours after meals and at bedtime and record When patient is discharge cardiology will see patient in the outpatient setting it service manager pursuing the discharge plan patient will need to be transferred to F facility when medically stable anticipate within the next 72 hours The above dictated assessment and findings were discussed with dr mc Rolon and the plan of care have been dictated as directed. Marueen Tucker nurse practitioner acting as a scribe for dr bentley
[2016-12-04 12:02] LABS: Glucose,Whole Blood 90 mg/dL (75-99)
[2016-12-04 14:06] LABS: Glucose,Whole Blood 266 mg/dL (75-99)
[2016-12-04] MEDS: VANCOMYCIN 1,000 MG in SODIUM CHLORIDE 0.9% 250 ML IVPB SCH (16:19)
[2016-12-04] MEDS: LEVOFLOXACIN 500 MG TAB PO SCH (16:26)
[2016-12-04 16:45] LABS: Glucose,Whole Blood 284 mg/dL (75-99)
[2016-12-04 18:59] LABS: Glucose,Whole Blood 412 mg/dL (75-99)
[2016-12-04 20:46] LABS: Glucose,Whole Blood 507 mg/dL (75-99)
[2016-12-04 20:46] LABS: Glucose,Whole Blood 538 mg/dL (75-99)
[2016-12-04] MEDS: TERAZOSIN 2 MG CAP PO SCH (20:56)
[2016-12-04] MEDS: INSULIN DETEMIR 100 UNIT/ML 10 ML VIAL SQ SCH (21:04)
[2016-12-05 01:58] LABS: Glucose,Whole Blood 458 mg/dL (75-99)
[2016-12-05 02:00] LABS: Glucose,Whole Blood 463 mg/dL (75-99)
[2016-12-05 06:16] LABS: Glucose,Whole Blood 217 mg/dL (75-99)
[2016-12-05] MEDS: DEXTROSE 5%-0.2% NACL 1,000 ML IV SCH (06:51)
[2016-12-05] MEDS: CARVEDILOL 12.5 MG TAB PO SCH ×2 (06:52→17:44)
[2016-12-05 07:15] LABS: Basophils # (A) 0.1 k/uL (0-0.2); Basophils % (A) 0 %; CH 28.7; CHCM 30.7; Eosinophils # (A) 0.4 k/uL (0-0.7); Eosinophils % (A) 3 %; HCT 27.7 % (34.0-46.0); HDW 3.74; HGB 8.3 gm/dL (11.4-16.0); Hypochromasia Marked; Luc # (Auto) 0.16; Luc % (Auto) 2; Lymphocytes # (A) 1.9 k/uL (1.0-4.8); Lymphocytes % (A) 18 %; MCH 28.1 pg (25.0-35.0); MCHC 30.1 g/dL (31.0-37.0); MCV 93.4 fL (80.0-100.0); Mean Platelet Volume 6.9; Monocytes # (A) 0.5 k/uL (0-1.0); Monocytes % (A) 5 %; Neutrophils # (A) 7.4 k/uL (1.3-7.7); Neutrophils % (A) 72 %; Poikilocytosis Slight; RBC 2.97 m/uL (3.80-5.40); RDW 15.4 % (11.5-15.5); WBC 10.4 k/uL (3.8-10.6); WBC (Perox) 10.89
[2016-12-05 07:31] LABS: ALT 35 U/L (9-52); AST 33 U/L (14-36); Alkaline Phosphatase 79 U/L (38-126); Anion Gap 13 mmol/L; Blood Urea Nitrogen 46 mg/dL (7-17); Calcium 9.2 mg/dL (8.4-10.2); Carbon Dioxide 24 mmol/L (22-30); Chloride 105 mmol/L (98-107); Glucose 189 mg/dL (74-99); Non-African American GFR(MDRD) 53 (>60 ml/min/1.73 sqM); Potassium 4.9 mmol/L (3.5-5.1); Sodium 142 mmol/L (137-145); Total Bilirubin 0.4 mg/dL (0.2-1.3)
[2016-12-05] MEDS: TICAGRELOR 90 MG TAB PO SCH ×2 (08:16→22:46)
[2016-12-05] MEDS: FUROSEMIDE 40 MG TAB PO SCH ×2 (08:16→17:44)
[2016-12-05] MEDS: carBAMazepine 200 MG TAB PO SCH ×3 (08:16→22:45)
[2016-12-05] MEDS: VANCOMYCIN 1,000 MG in SODIUM CHLORIDE 0.9% 250 ML IVPB SCH (08:16)
[2016-12-05] MEDS: LISINOPRIL 10 MG TAB PO SCH (08:16)
[2016-12-05] MEDS: POTASSIUM CHLORIDE ER 20 MEQ TAB.ER PO SCH ×2 (08:16→22:45)
[2016-12-05] MEDS: ASPIRIN 81 MG CHEW PO SCH (08:16)
[2016-12-05] MEDS: FENOFIBRATE 160 MG TAB PO SCH (08:16)
[2016-12-05] MEDS: FAMOTIDINE 20 MG TAB PO SCH (08:16)
[2016-12-05] MEDS: ALBUTEROL NEBULIZED 2.5 MG/3 ML INHALATION SCH ×4 (08:25→20:49)
--- NOTE | 2016-12-05 08:25 | PN ---
DATE OF SERVICE: 12/04/2016 Reason for follow-up is right foot wound with MRSA infection. INTERVAL HISTORY: The patient is afebrile. He has been breathing comfortably, awake, alert. Denies having any chest pain or shortness of breath or cough. No abdominal pain or any pain in the right foot area. On examination, blood pressure is 135/77 with a pulse of 87, temperature 97.3. She is 100% on room air. General description is an elderly female up in the bed in no distress. RESPIRATORY SYSTEM: Unlabored breathing. Clear to auscultation. HEART: S1, S2. Regular rate and rhythm. ABDOMEN: Soft. No tenderness. Right foot wound still has slough tissue at the base. The surrounding redness has slightly improved. LABS: Hemoglobin 8.6, white count 13.8, BUN 41, creatinine 1.05. DIAGNOSTIC IMPRESSION AND PLAN: Patient with heel wound to the right foot status post transmetatarsal amputation. Patient at this time will continue with the Santyl to the wound followed by moist dressing and IV vancomycin for which a PICC line will be placed. Continue supportive care. ELIAS
[2016-12-05 11:29] LABS: Glucose,Whole Blood 276 mg/dL (75-99)
[2016-12-05] MEDS: COLLAGENASE 250 UNIT/GM OINTMENT 30 GM TUBE TOPICAL SCH (12:41)
[2016-12-05 14:40] LABS: Glucose,Whole Blood 276 mg/dL (75-99)
--- NOTE | 2016-12-05 17:42 | PN ---
DATE OF SERVICE: 12/04/2016 CHIEF COMPLAINT: Left-sided cerebrovascular accident, gangrene of the right foot, atrial fibrillation and uncontrolled diabetes. HISTORY OF PRESENT ILLNESS: This lady's blood sugars are still erratic. Other than that she is doing fairly well. Her speech is starting to improve and she is moving her right side much better. PHYSICAL EXAM: Her vital signs are normal at this time. She is in atrial fibrillation. Chest is clear. CARDIAC: Unchanged. ABDOMEN: Soft, nontender. IMPRESSION: 1. Left-sided cerebrovascular accident. 2. Gangrene of the right foot. 3. Uncontrolled diabetes. 4. Cardiac murmur. PLAN: Continue to adjust insulin to get better control of her blood sugars.
[2016-12-05] MEDS: ENOXAPARIN 40 MG/0.4 ML SYRINGE SQ SCH (17:44)
[2016-12-05] MEDS: LEVOFLOXACIN 500 MG TAB PO SCH (17:44)
[2016-12-05] MEDS: INSULIN LISPRO (humaLOG) 300 UNIT/3 ML VIAL SQ SCH (17:45)
--- NOTE | 2016-12-05 18:04 | PN ---
DATE OF SERVICE: 12/05/2016 CHIEF COMPLAINT: Cerebrovascular accident, gangrene of the right foot, atrial fibrillation and murmur. HISTORY OF PRESENT ILLNESS: This lady is about the same. Sugars are slightly improved. PHYSICAL EXAM: CHEST: Clear. CARDIAC: Unchanged. Abdomen is soft. She is moving the right side slightly better each day. Her speech is improving as well. IMPRESSION: 1. Left-sided cerebrovascular accident. 2. Murmur. 3. Atrial fibrillation. 4. 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 PLAN: No change in program at this time and will look to make arrangements for discharge next week.
[2016-12-05 19:13] LABS: Glucose,Whole Blood 369 mg/dL (75-99)
[2016-12-05 21:04] LABS: Glucose,Whole Blood 293 mg/dL (75-99)
--- NOTE | 2016-12-05 21:15 | PN ---
DATE OF SERVICE: 12/05/2016 Reason for follow-up: Right foot MRSA infection. INTERVAL HISTORY: Patient is afebrile. She is more awake, alert and she is breathing comfortably. Denies having any chest pain. Occasional cough. No abdominal pain. Worsening pain in the right foot area. On examination, blood pressure is 154/70 with a pulse of 78, temperature 98. She is 98% on room air. General description is an elderly female up in the bed in no distress. RESPIRATORY SYSTEM: Unlabored breathing. Clear to auscultation anteriorly. HEART: S1, S2. Regular rate and rhythm. ABDOMEN: Soft, no tenderness. Right foot wound is currently dressed up, no obvious drainage on the dressing. LABS: Hemoglobin 8.3, white count 10.4 with a BUN of 46, creatinine 1.04. Diagnostic impression and plan: Patient with right foot Methicillin-resistant Staph aureus infection with significant deep wound continue with the Santyl followed by moist dressing, continue IV vancomycin for which the patient will get a PICC line for three week course of outpatient IV antibiotics. Continue supportive care. ELIAS
[2016-12-05] MEDS: TERAZOSIN 2 MG CAP PO SCH (22:45)
[2016-12-06] MEDS: INSULIN DETEMIR 100 UNIT/ML 10 ML VIAL SQ SCH ×2 (00:12→20:48)
[2016-12-06 02:12] LABS: Glucose,Whole Blood 470 mg/dL (75-99)
[2016-12-06] MEDS: DEXTROSE 5%-0.2% NACL 1,000 ML IV SCH ×2 (06:10→20:48)
[2016-12-06 06:12] LABS: Glucose,Whole Blood 300 mg/dL (75-99)
[2016-12-06] MEDS: CARVEDILOL 12.5 MG TAB PO SCH ×2 (06:14→16:43)
[2016-12-06 06:42] LABS: Calcium 9.3 mg/dL (8.4-10.2); Potassium 5.1 mmol/L (3.5-5.1); Total Bilirubin 0.3 mg/dL (0.2-1.3); Total Protein 6.6 g/dL (6.3-8.2)
[2016-12-06] MEDS: VANCOMYCIN 1,000 MG in SODIUM CHLORIDE 0.9% 250 ML IVPB SCH (06:59)
[2016-12-06] MEDS: ALBUTEROL NEBULIZED 2.5 MG/3 ML INHALATION SCH ×4 (07:32→20:20)
[2016-12-06] MEDS: FAMOTIDINE 20 MG TAB PO SCH (07:41)
[2016-12-06] MEDS: ASPIRIN 81 MG CHEW PO SCH (07:41)
[2016-12-06] MEDS: LISINOPRIL 10 MG TAB PO SCH (07:41)
[2016-12-06] MEDS: POTASSIUM CHLORIDE ER 20 MEQ TAB.ER PO SCH ×2 (07:41→20:48)
[2016-12-06] MEDS: FUROSEMIDE 40 MG TAB PO SCH ×3 (07:42→16:46)
[2016-12-06] MEDS: FENOFIBRATE 160 MG TAB PO SCH (07:42)
[2016-12-06] MEDS: carBAMazepine 200 MG TAB PO SCH ×3 (07:42→20:49)
[2016-12-06] MEDS: TICAGRELOR 90 MG TAB PO SCH ×2 (07:42→21:26)
[2016-12-06] MEDS: COLLAGENASE 250 UNIT/GM OINTMENT 30 GM TUBE TOPICAL SCH (10:30)
[2016-12-06 11:34] LABS: Glucose,Whole Blood 143 mg/dL (75-99)
[2016-12-06 16:32] LABS: Glucose,Whole Blood 250 mg/dL (75-99)
[2016-12-06] MEDS: INSULIN LISPRO (humaLOG) 300 UNIT/3 ML VIAL SQ SCH (16:41)
[2016-12-06] MEDS: LEVOFLOXACIN 500 MG TAB PO SCH (16:42)
[2016-12-06] MEDS: ENOXAPARIN 40 MG/0.4 ML SYRINGE SQ SCH (16:42)
[2016-12-06] MEDS: TERAZOSIN 2 MG CAP PO SCH (20:47)
[2016-12-06 21:17] LABS: Glucose,Whole Blood 115 mg/dL (75-99)
[2016-12-07] MEDS ORDERED: VANCOMYCIN 1,000 MG in SODIUM CHLORIDE 0.9% 250 ML IVPB SCH ×2
[2016-12-07 02:08] LABS: Glucose,Whole Blood 168 mg/dL (75-99)
[2016-12-07 04:31] VITALS: RESP 18
[2016-12-07 06:45] LABS: ALT 25 U/L (9-52); AST 32 U/L (14-36); Alkaline Phosphatase 71 U/L (38-126); Anion Gap 13 mmol/L; Blood Urea Nitrogen 53 mg/dL (7-17); Calcium 9.1 mg/dL (8.4-10.2); Carbon Dioxide 24 mmol/L (22-30); Chloride 102 mmol/L (98-107); Glucose 66 mg/dL (74-99); Non-African American GFR(MDRD) 50 (>60 ml/min/1.73 sqM); Potassium 4.9 mmol/L (3.5-5.1); Sodium 139 mmol/L (137-145); Total Bilirubin 0.3 mg/dL (0.2-1.3); Total Protein 6.7 g/dL (6.3-8.2)
[2016-12-07] MEDS: CARVEDILOL 12.5 MG TAB PO SCH (06:46)
[2016-12-07 06:59] LABS: Glucose,Whole Blood 60 mg/dL (75-99)
[2016-12-07] MEDS: ENOXAPARIN 40 MG/0.4 ML SYRINGE SQ SCH (07:30)
[2016-12-07] MEDS: COLLAGENASE 250 UNIT/GM OINTMENT 30 GM TUBE TOPICAL SCH (07:30)
[2016-12-07] MEDS: ASPIRIN 81 MG CHEW PO SCH (07:30)
[2016-12-07] MEDS: FENOFIBRATE 160 MG TAB PO SCH (07:32)
[2016-12-07] MEDS: FAMOTIDINE 20 MG TAB PO SCH (07:32)
[2016-12-07] MEDS: carBAMazepine 200 MG TAB PO SCH (07:32)
[2016-12-07] MEDS: POTASSIUM CHLORIDE ER 20 MEQ TAB.ER PO SCH (07:33)
[2016-12-07] MEDS: FUROSEMIDE 40 MG TAB PO SCH (07:33)
[2016-12-07] MEDS: LISINOPRIL 10 MG TAB PO SCH (07:33)
[2016-12-07 07:41] LABS: Glucose,Whole Blood 62 mg/dL (75-99)
[2016-12-07 07:43] VITALS: TEMP 97
[2016-12-07 07:43] LABS: Glucose,Whole Blood 108 mg/dL (75-99)
[2016-12-07] MEDS: ALBUTEROL NEBULIZED 2.5 MG/3 ML INHALATION SCH ×2 (09:04→13:31)
[2016-12-07 11:26] VITALS: BP 121/65
[2016-12-07 11:53] LABS: Glucose,Whole Blood 318 mg/dL (75-99)
--- NOTE | 2016-12-07 12:00 | PN ---
DATE OF SERVICE: 12/06/2016 Reason for followup is right foot MRSA wound infection. INTERVAL HISTORY: The patient is afebrile. She has been breathing comfortably. Denies significant chest pain. No shortness of breath or cough. No abdominal pain or any pain in the right foot area. On examination, blood pressure is 130/69 with a pulse of 70, temperature is 97.2. She is 99% on room air. General description is an elderly female, lying in bed in no distress. RESPIRATORY SYSTEM: Unlabored breathing. Clear to auscultation anteriorly. HEART: S1, S2, regular rate and rhythm. ABDOMEN: Soft, no tenderness. Right foot is currently in the dressing. LABS: Hemoglobin is 8.3, white count of 10.4. BUN 47, creatinine is 1.12 DIAGNOSTIC IMPRESSION AND PLAN: Patient with right foot wound infection with methicillin-resistant Staphylococcus aureus with secondary cellulitis. The patient will continue with local wound care with Santyl, having antibiotic in the form of vancomycin for at least 3 to 4 weeks and depend on the clinical response with outpatient followup. Continue supportive care. ELIAS
[2016-12-07] MEDS ORDERED: LIDOCAINE 2% INJ 20 MG/ML SQ ONE (12:21)
[2016-12-07] MEDS: TICAGRELOR 90 MG TAB PO SCH (12:45)
--- NOTE | 2016-12-07 13:09 | P.DS ---
Providers Date of admission: 11/24/16 18:13 Expected date of discharge: 12/07/16 Attending physician: Josh Ramos Consults: 11/25/16 08:16 Consult Physician Urgent Consulting Provider: Natalie Tilley Consult Reason/Comments: altered mental status Do you want consulting provider notified?: Yes 11/25/16 14:01 Consult Physician Stat Consulting Provider: Ronak Carney Consult Reason/Comments: Mildly elevated troponin Do you want consulting provider notified?: Yes 11/27/16 09:06 Consult Physician Stat Consulting Provider: García Keith Consult Reason/Comments: Evaluate and Treat foot wound Do you want consulting provider notified?: Yes 11/30/16 15:21 Consult Physician Stat Consulting Provider: King Hutchinson Consult Reason/Comments: Recommendations antibiotics Do you want consulting provider notified?: Yes Primary care physician: Stated None Hospital Course: Hospital course 66-year-old female who was transferred from [facility] on the November 24 patient was noted to be experiencing right upper extremity weakness with right facial droop with expressive aphasia. Patient reportedly had a CAT scan done at [facility] reported as normal was transferred to [facility] to be evaluated for the above-mentioned symptoms it's noted that the patient was seen by neurology service was felt to have an subacute infarct in the basal ganglion on the left per repeat CAT scan of the brain. Is also noted that the patient had recently undergone a right transmetatarsal amputation suspect due to necrotic tissue in the area. A vascular consultation was requested. Patient's been followed by . Dr. Keith and Dr. Carney Additionally a cardiology consultation was requested because of abnormal troponin levels. The troponins were not consistent with an acute coronary syndrome. Patient did have an echocardiogram which did show normal LV systolic function. The EF was calculated 55-60%. There was no evidence of pulmonary hypertension no valvular heart disease PT OT eval which they did participate in the plan of care. Vascular and cardiology indicate that at some point patient will need peripheral angiogram to rule out any severe underlying coronary artery disease behind her critical limb ischemia Patient underwent aortogram with bilateral lower extremity runoff by Dr. Smith yesterday which revealed a patent stent in the right superficial femoral artery with severe disease involving the left superficial femoral artery. Currently we will continue the patient on maximal medical therapy. She will have a follow-up appointment with Dr. Carney in the office Patient was followed by infectious disease as well Dr. Hutchinson. Patient's right foot was positive for MRSA infection which was deep. Recommended IV antibiotics for 3 weeks in the outpatient setting in which the patient did get a PICC line which was inserted on December 07. Outpatient antibiotics were set up by infectious disease. Dr. 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 The blood sugar readings were reviewed by the attending. Adjustment to the insulins were made. The Levemir will be increased to 50 units at bedtime Humalog 8 units at supper only and blood sugars will be checked with meals 2 hours after meals and at bedtime this will be reviewed by the attending further adjustments to the insulin will be made. Impression discharge diagnosis Present on admission acute metabolic encephalopathy suspect due to subacute infarct basal ganglia on the left with chronic small vessel ischemia CAT scan of the brain evidence of chronic small vessel ischemic changes suspect dementia with no behavior changes Present on admission open wound right foot with a positive wound culture for MRSA History of hypertension Type 2 diabetes insulin requiring uncontrolled hemoglobin A1c 6.8 Peripheral artery disease with a prior transmetatarsal amputation of the right foot angioplasty of the distal right SFA Status post 27 of November lower extremity arterial Doppler showing moderate right side disease at the popliteal level Status post December 02 abdominal aortogram bilateral lower extremity runoff showing patent stent in the right superficial femoral artery with severe disease involving the left superficial femoral artery Bilateral critical limb ischemia lower extremity Postprocedure acute hypoxic respiratory failure hypotensive with acute toxic encephalopathy suspect due to moderate sedation for planned procedure resolved Acute symptomatic hypoglycemic episode resolved suspect due to poor caloric intake Episodes of hypotension suspect due to hypertensive meds Persistent Episodes of hypoglycemia Chronic physical debility Suspect dementia without behavioral changes CAT scan of the brain shows chronic small vessel ischemic changes Right foot positive infection MRSA present on admission The above dictated assessment and findings were discussed with dr mc Rolon and the plan of care have been dictated as directed. Maureen Tucker nurse practitioner acting as a scribe for Dr. Ramos Patient Condition at Discharge: Serious Plan - Discharge Summary New Discharge Prescriptions: HYDROcodone/APAP 5-325MG [[place] 5-325] 1 each PO Q6HR PRN #30 tab PRN Reason: Moderate Pain Discharge Medication List Aspirin EC [Ecotrin Low Dose] 81 mg PO DAILY 11/24/16 [History] Carvedilol [Coreg] 25 mg PO BID 11/24/16 [History] Fenofibrate,Micronized [Fenofibrate] 134 mg PO DAILY 11/24/16 [History] Furosemide [Lasix] 40 mg PO BID 11/24/16 [History] Levalbuterol HCl [Xopenex Concentrate] 1.25 mg INHALATION RT-TID 11/24/16 [ History] Potassium Chloride ER [K-Dur 10] 10 meq PO DAILY 11/24/16 [History] Terazosin [Hytrin] 2 mg PO HS 11/24/16 [History] Ticagrelor [Brilinta] 90 mg PO BID 11/24/16 [History] carBAMazepine [TEGretol] 200 mg PO TID 11/24/16 [History] metFORMIN HCL [Glucophage] 500 mg PO BID 11/24/16 [History] Acetaminophen Tab [Tylenol] 650 mg PO Q4HR PRN #0 tab 12/07/16 [Rx] Enoxaparin [Lovenox] 40 mg SQ DAILY syringe 12/07/16 [Rx] Famotidine [Pepcid] 20 mg PO DAILY tab 12/07/16 [Rx] HYDROcodone/APAP 5-325MG [[place] 5-325] 1 each PO Q6HR PRN #30 tab 12/07/16 [Rx] INSULIN LISPRO (humaLOG) [humaLOG (formulary)] 8 unit SQ AC-SUPPER vial [Rx] Insulin Detemir [Levemir] 50 unit SQ HS vial 12/07/16 [Rx] Lisinopril [Zestril] 20 mg PO DAILY tab 12/07/16 [Rx] Potassium Chloride ER [K-Dur 20] 20 meq PO BID tab.er.prt 12/07/16 [Rx] Vancomycin 1,000 mg IVPB Q16H vial 12/07/16 [Rx] Follow up Appointment(s)/Referral(s): Ronak Carney MD [STAFF PHYSICIAN] - 1 Week None,Stated [Primary Care Provider] - 1-2 days King Hutchinson MD [STAFF PHYSICIAN] - 1 Week García Keith DO [Doctor of Osteopathic Medicine] - 12/15/16 9:45 am Ambulatory/Diagnostic Orders: Complete Blood Count w/diff [LAB.AMB] Time Frame: 12/14/16, Location: Determined By Patient Comprehensive Metabolic Panel [LAB.AMB] Time Frame: 12/07/16, Location: Determined By Patient Erythrocyte Sedimentation Rate [LAB.AMB] Time Frame: 12/07/16, Location: Determined By Patient Activity/Diet/Wound Care/Special Instructions: Dressing change with half strength peroxide irrigation, moist to dry dressing, and niranjan wrap daily Care Plan Goals (MU): Patient is to have weekly labs CBC, BNP, ESR. These labs are to be called to Dr. Hutchinson while on vancomycin Discharge Disposition: TRANSFER TO SNF/ECF
[2016-12-07 13:45] VITALS: PULSE 76
[2016-12-07] MEDS ORDERED: INSULIN LISPRO (humaLOG) 300 UNIT/3 ML VIAL SQ SCH (17:30)
--- NOTE | 2016-12-07 17:43 | PN ---
DATE OF SERVICE: 12/07/2016 Reason for follow-up: Right foot MRSA infection. INTERVAL HISTORY: The patient is afebrile. She is with no chest pain , cough and no nausea or vomiting, diarrhea has been noticed. On examination, blood pressure is 100/57 with a pulse of 78, temperature 97. She is 98% on room air. General description is an elderly female lying in bed in no distress. RESPIRATORY SYSTEM: Unlabored breathing. Clear to auscultation anteriorly. HEART: S1, S2. Regular rate and rhythm. ABDOMEN: Soft, no tenderness. Right foot is currently dress up, no obvious drainage on the dressing. LABS: BUN of 53, creatinine 1.10. Diagnostic impression and plan: Patient with right foot Methicillin-resistant Staph aureus infection in the wound. Recommend to continue the patient on vancomycin pharmacy to dose for another 4 weeks along with weekly monitoring of CBC, BMP and sedimentation rate. Local wound care with Santyl and outpatient follow-up. ELIAS
--- NOTE | 2016-12-07 19:53 | PN ---
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 HISTORY OF PRESENT ILLNESS: This lady is stable and her blood sugars are still erratic. Otherwise doing well. We are starting to look for opportunities to move her out of the hospital and probably to a senior living. PHYSICAL EXAMINATION: She is awake and alert, has some speech. Affect is flat. Her chest is clear. Cardiac exam is unchanged. Abdomen is soft, nontender. IMPRESSION: 1. Left-sided cerebrovascular accident. 2. Atrial fibrillation. 3. Murmur. 4. Poorly controlled diabetes. 5. 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 PLAN: No change in program. Will start to look at moving her on to a senior living.
--- NOTE | 2016-12-07 20:09 | PN ---
DATE OF SERVICE: 12/07/2016 CHIEF COMPLAINT: CVA, atrial fibrillation, diabetes and infected right distal foot amputation. HISTORY OF PRESENT ILLNESS: This lady is doing fairly well. Sugars are still erratic, but we are going to try to get her to a correction today. PHYSICAL EXAM: Her chest is clear. Cardiac exam is normal. The abdomen is soft and non-tender. IMPRESSION: 1. Left-sided cerebrovascular accident. 2. Ischemic changes and gangrene of the right distal foot. 3. Murmur. 4. Aortic stenosis. PLAN: Probably move to a correction today. This will be arranged by the nurse practitioner.
[2016-12-08] MEDS ORDERED: VANCOMYCIN TROUGH DUE 1 EACH MISC MISCELLANE ONE (07:00)
[2016-12-08] MEDS ORDERED: LEVOFLOXACIN 250 MG TAB PO SCH (16:00)
--- NOTE | 2016-12-21 12:29 | IR ---
PICC LINE PLACEMENT: HISTORY: Infection requiring long-term antibiotic therapy PROCEDURE: Ultrasound guidance of PICC line placement. FILLING HAND: Dr. Centeno. COMPLICATIONS: None ANESTHESIA: 1. 1% Lidocaine locally. FINDINGS/TECHNIQUE: The procedure was explained to the patient. The risks, complications, benefits and alternatives were discussed and any questions were answered. Informed consent was obtained. The patient was placed supine on the fluoroscopic table and prepped and draped in the usual sterile fas ion. Utilizing a 21 gauge needle and sonographic guidance, access in the left basilic vein was achi eved and there is placement of a 0.018 guidewire. The vein is patent. A 5-F. sheath was placed over the guidewire. The guidewire and dilator were removed and a 5-F. Double lumen PICC line was placed through the sheath with the chest x-ray confirming the tip at the level of the SVC. The sheath was r emoved, the catheter was flushed and sutured into position. The patient was stable throughout the pr ocedure and remained stable upon discharge from the Department of Radiology. The vein puncture was patent under ultrasound. A nunez scale image was obtained to document patency of the vein punctured. All elements of the maximal barrier technique were utilized. IMPRESSION: 1. Successful PICC line placement under ultrasound performed bedside within the ICU.
== END 2016-12-07 15:44 | DRG 64 ==
LOC: EC 16:40 → 6SEL 18:13
PROVIDERS: ADMIT Family Medicine; ATTEND Family Medicine
PROC: B44HZZZ Ultrasonography of Bilateral Lower Extremity Arteries (ICD-10-PCS; 2016-11-27)
PROC: B41D1ZZ Fluoroscopy of Aorta and Bilateral Lower Extremity Arteries using Low Osmolar Contrast (ICD-10-PCS; principal; 2016-12-02 08:37)
PROC: B548ZZA Ultrasonography of Superior Vena Cava, Guidance (ICD-10-PCS; 2016-12-07)
PROC: 02HV33Z Insertion of Infusion Device into Superior Vena Cava, Percutaneous Approach (ICD-10-PCS; 2016-12-07 12:00)
DX: I63.9 Cerebral infarction, unspecified (principal); G92 Toxic encephalopathy; J96.01 Acute respiratory failure with hypoxia; E11.52 Type 2 diabetes mellitus with diabetic peripheral angiopathy with gangrene; T87.43 Infection of amputation stump, right lower extremity; G81.91 Hemiplegia, unspecified affecting right dominant side; L03.115 Cellulitis of right lower limb; I50.30 Unspecified diastolic (congestive) heart failure; I11.0 Hypertensive heart disease with heart failure; I48.91 Unspecified atrial fibrillation; R47.01 Aphasia; N39.0 Urinary tract infection, site not specified; T87.81 Dehiscence of amputation stump; E11.649 Type 2 diabetes mellitus with hypoglycemia without coma; E11.65 Type 2 diabetes mellitus with hyperglycemia; E83.42 Hypomagnesemia; J44.9 Chronic obstructive pulmonary disease, unspecified; E78.5 Hyperlipidemia, unspecified; R29.711 NIHSS score 11; M20.61 Acquired deformities of toe(s), unspecified, right foot; R29.810 Facial weakness; Z86.718 Personal history of other venous thrombosis and embolism; K21.9 Gastro-esophageal reflux disease without esophagitis; I25.2 Old myocardial infarction; F17.200 Nicotine dependence, unspecified, uncomplicated; G40.909 Epilepsy, unspecified, not intractable, without status epilepticus; I25.10 Atherosclerotic heart disease of native coronary artery without angina pectoris; I99.8 Other disorder of circulatory system; B95.62 Methicillin resistant Staphylococcus aureus infection as the cause of diseases classified elsewhere; I35.0 Nonrheumatic aortic (valve) stenosis; E86.0 Dehydration; K76.9 Liver disease, unspecified; Z86.73 Personal history of transient ischemic attack (TIA), and cerebral infarction without residual deficits; Z95.5 Presence of coronary angioplasty implant and graft; Z79.4 Long term (current) use of insulin; Z79.84 Long term (current) use of oral hypoglycemic drugs; Z79.82 Long term (current) use of aspirin; Z79.899 Other long term (current) drug therapy; Y83.5 Amputation of limb(s) as the cause of abnormal reaction of the patient, or of later complication, without mention of misadventure at the time of the procedure
CPT/HCPCS: 36200; 36415; 36569; 70450; 71010; 74230; 75625; 75716; 76937; 77001; 80053; 80061; 80202; 81001; 82140; 82550; 82553; 82947; 83036; 83605; 83735; 83880; 84100; 84484; 85025; 85027; 85610; 85730; 87040; 87070; 87075; 87077; 87086; 87186; 87205; 93005; 93306; 93880; 93923; 94640; 94760; 96361; 96365; 99285